=== PATIENT | female | born 2000 | race Caucasian/White ===

== ENCOUNTER 2019-07-11 19:55 | Inpatient (IN) | payer MEDICAID ==
--- NOTE | 2019-07-11 22:23 | PCM.LDHP ---
L&D History of Present Illness - General Date of Service: 07/11/19 Admit Problem/Dx: Patient Status Order with Admit Dx/Problem 07/11/19 20:12 Patient Status [ADT] Routine Admission Diagnosis/Problem Admission Diagnosis/Problem Pyelonephritis affecting Source of Information: Patient History Limitations: Reports: No Limitations - History of Present Illness Introduction:: Makayla Ledbetter is a 19 year old at 22 weeks 3 days by early ultrasound who presents for evaluation in the setting of ongoing back pain. Patient had called in to the office yesterday complaining of lower abdominal cramping and back pain that was not getting better with Tylenol. She was given a prescription for cyclobenzaprine as her symptoms sounded similar to a musculoskeletal problem as the pain would get worse on the area that was being stretched. She states that the medication did not help and the pain has gotten slowly worse throughout the day and into today. She states that now the pain is mostly in her back on the right side and in the lower right quadrant of her abdomen. She also has been having some suprapubic tenderness. She reports that she has been having worsening nausea since yesterday and significant amount of vomiting today and has not been able to keep anything down today. She has tried eating 2 or 3 times throughout the day and threw up every time that she tried to eat anything. She reports that she has been having fevers this afternoon. She denies any urinary symptoms such as dysuria, urinary frequency or urgency. She reports that she has been having some watery vaginal discharge for the last 2 days as well. Denies any vaginal bleeding. Patient was seen in the clinic on 07/09/2019 and doing well at that time. She reports that she has been having decreased movement yesterday and today as well. Timing/Duration: Reports: day(s): (2), getting worse Location, : Reports: Lower back, Flank Quality: Reports: Sharp, Throbbing Severity: Severe Associated Symptoms: Reports: vaginal fluid. Denies: vaginal bleeding, vaginal discharge Present Illness Comments:: Makayla Ledbetter is a 19 year old at 22 weeks 3 days by early ultrasound who presents with back pain and fevers. She has recently transferred care to myself starting on 07/09/2019. Prior to that appointment she had been having care in [place]. She received the influenza vaccine on 03/29/2019. This is complicated by: * Gastroesophageal reflux in and was recently started on Zantac to treat her reflux * Klebsiella pneumoniae urinary tract infection treated on 06/17/2019 with Keflex * Rubella nonimmune status, recommend MMR vaccine after delivery labs Blood type: O+ Antibody screen: Negative First trimester hematocrit/hemoglobin: 41.3%/14.0 on 04/01/2019 Platelets: 214 on 04/01/2019 Urine culture: Initial was negative, Klebsiella pneumoniae urinary tract infection on urine culture on 06/14/2019 Rubella status: Nonimmune Hepatitis B surface antigen: Negative RPR: Negative HIV: Negative Gonorrhea: Negative Chlamydia: Negative genetic testing: Normal AFP Tetra testing anatomy ultrasound : Grossly normal anatomy ultrasound but kidneys and spine were not well seen. Anterior placenta. No previa. 30th percentile. Normal heart rate and fluid. - Related Data Allergies/Adverse Reactions: Allergies Allergy/AdvReac Type Severity Reaction Status Date / Time oxycodone Allergy Other Verified 07/11/19 20:12 Home Medications: Home Meds No122/Iron/Folic Acid [ Multi Tablet] 1 each PO DAILY 04/15/19 [History] Cyclobenzaprine [Flexeril] 1 tab PO TID PRN 07/11/19 [History] Ranitidine HCl [Acid [employer]] 150 mg PO DAILY 07/11/19 [History] Past Medical History HEENT History: Reports: None Cardiovascular History: Reports: None Respiratory History: Reports: None Gastrointestinal History: Reports: None Genitourinary History: Reports: None 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: : 1 Para: 0 Musculoskeletal History: Reports: None Neurological History: Reports: None Psychiatric History: Reports: Anxiety, Depression Endocrine/Metabolic History: Reports: None 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 Hematologic History: Reports: None Immunologic History: Reports: None Oncologic (Cancer) History: Reports: None Dermatologic History: Reports: None - Infectious Disease History Infectious Disease History: Reports: None - Past Surgical History Head Surgeries/Procedures: Reports: None Female Surgical History: Reports: None Social & Family History - Family History Family Medical History: Noncontributory - Tobacco Use Smoking Status *Q: Never Smoker - Tobacco Core Measures Tobacco Use/Smoking Within Last 30 Days: No Smokeless Tobacco Use in Last 30 Days: No - Caffeine Use Caffeine Use: Reports: Soda - Alcohol Use Alcohol Use History: No - Recreational Drug Use Recreational Drug Use: No Drug Use in Last 12 Months: No - Living Situation & Occupation Living situation: Reports: Single, with Significant Other Occupation: Unemployed H&P Review of Systems - Review of Systems: Review Of Systems: See Below General: Reports: Fever, Malaise, Weakness. Denies: Chills HEENT: Reports: Sore Throat. Denies: Post Nasal Drip, Sinus Congestion Pulmonary: Denies: Shortness of Breath, Wheezing, Pleuritic Chest Pain, Cough Cardiovascular: Denies: Chest Pain, Palpitations, Dyspnea on Exertion Gastrointestinal: Reports: Nausea, Vomiting. Denies: Abdominal Pain, Constipation, Diarrhea Genitourinary: Reports: Flank Pain. Denies: Dysuria, Frequency, Burning, Pain, Urgency Musculoskeletal: Reports: Back Pain Skin: Denies: Rash, Lesions Psychiatric: Denies: Depression, Anxiety L&D Exam - Exam Exam: See Below - Vital Signs Vital Signs: Last Vital Signs Temp 38.5 C H 07/11/19 20:12 Pulse 105 H 07/11/19 20:12 Resp 16 07/11/19 20:12 BP 103/72 07/11/19 20:12 Pulse Ox 99 07/11/19 20:12 Weight: 86.636 kg - OB Specific Contraction Duration (sec): 0 Contraction Frequency (min): 0 Contraction Intensity: Quiet Movement: Active Heart Tones: Present Heart Tones per Min: 146 - Exam General: Alert, Oriented, Mild Distress HEENT: Conjunctiva Clear, EOMI Neck: Supple, Trachea Midline Lungs: Clear to Auscultation, Normal Respiratory Effort Cardiovascular: Regular Rhythm, Tachycardia (mild) GI/Abdominal Exam: Normal Bowel Sounds, Soft, No Distention, Tender (mild suprapubic tenderness) Back Exam: CVA Tenderness (R). No: CVA Tenderness (L) Extremities: Normal Inspection, No Pedal Edema Skin: Warm, Dry, Intact Psychiatric: Alert, Normal Affect, Normal Mood - Patient Data Lab Results Last 24 hrs: Laboratory Results - last 24 hr 07/11/19 07/11/19 Range/Units 20:20 20:20 Urine Color Yellow (Yellow) Urine Appearance Slt cloudy H (Clear) Urine pH 7.5 (5.0-8.0) Ur Specific [place] 1.020 (1.005-1.030) Urine Protein Trace H (Negative) Urine Glucose (UA) Negative (Negative) Urine Ketones Trace H (Negative) Urine Occult Blood Negative (Negative) Urine Nitrite Negative (Negative) Urine Bilirubin Negative (Negative) Urine Urobilinogen 0.2 (0.2-1.0) Ur Leukocyte Esterase 3+ H (Negative) Urine RBC 5-10 H (0-5) /hpf Urine WBC 40-50 H (0-5) /hpf Ur Squamous Epith Cells 20-30 H (0-5) /hpf Urine Bacteria Many H (FEW) /hpf Urine Mucus Few (FEW) /hpf Membrane Rupture Negative - Problem List (1) 22 weeks gestation of SNOMED Code(s): 07846074 ICD Code: Z3A.22 - 22 WEEKS GESTATION OF Status: Acute Current Visit: Yes (2) Pyelonephritis affecting in second trimester SNOMED Code(s): 67338799, 08354959, 186022689, 316435736 ICD Code: O23.02 - INFECTIONS OF KIDNEY IN , SECOND TRIMESTER Status: Acute Current Visit: Yes (3) Gastroesophageal reflux in SNOMED Code(s): 40396710826296989 ICD Code: O99.619 - DISEASES OF THE DGSTV SYS COMP , UNSP TRIMESTER ; K21.9 - GASTRO-ESOPHAGEAL REFLUX DISEASE WITHOUT ESOPHAGITIS Status: Acute Current Visit: Yes Problem List Initiated/Reviewed/Updated: Yes Orders Last 24hrs: Active Orders 24 hr Category Date Time Status Patient Status Manage Transfer [TRANSFER] Routine ADT 07/11/19 22:13 Active Patient Status [ADT] Routine ADT 07/11/19 20:12 Active Vital Signs [RC] PER UNIT ROUTINE Care 07/11/19 20:12 Active CBC WITH AUTO DIFF [HEME] Routine Lab 07/11/19 22:22 Ordered CMP [COMPREHENSIVE METABOLIC PN,CMP] [CHEM] Routine Lab 07/11/19 22:22 Ordered Resuscitation Status Routine Resus Stat 07/11/19 20:12 Ordered Assessment/Plan Comment:: Patient with suspected pyelonephritis based on CVA tenderness, fever, nausea and vomiting and abnormalities on her urinalysis with 3+ leukocyte esterase, 5- 10 urine RBCs, 40-50 urine WBCs and many bacteria. She was mildly dehydrated with specific gravity of 1.020. Refer patient to observation due to pyelonephritis with intolerance of oral intake Vitals per unit routine Activity as tolerated heart tones once per shift Regular diet as tolerated Normal saline IV fluid bolus 500 mL then transition to normal saline at 125 mL/ h. Continue while patient is not tolerating regular diet or fluids orally. Rocephin 2 g IV every 24 hours for treatment of pyelonephritis Tylenol 650 mg every 6 hours as needed for pain and also for treatment of fever Zofran 4 mg IV as first-line treatment and Phenergan 12.5 mg IV every 6 hours as second line treatment as needed for nausea and vomiting vitamin once daily Anticipate discharge once patient symptoms have improved, tolerating oral intake and afebrile Mayco Flowers MD 10:54 PM 07/11/2019
[2019-07-11] MEDS ORDERED: Sodium Chloride 0.9% 10 ML Syringe FLUSH PRN (22:33)
[2019-07-11] MEDS ORDERED: Famotidine 20 MG/2 ML SDV IV PRN (22:33)
[2019-07-11] MEDS ORDERED: Sodium Chloride 0.9% 1,000 ML IV SCH (22:33)
[2019-07-11] MEDS ORDERED: Promethazine 12.5 MG in Sodium Chloride 0.9% 50 ML IV PRN (22:33)
[2019-07-11] MEDS: cefTRIAXone 2 GM in Sodium Chloride 0.9% 100 ML IV SCH (22:58)
[2019-07-11] MEDS: Acetaminophen 325 MG Tab PO PRN (22:58)
[2019-07-12] MEDS: Sodium Chloride 0.9% 1,000 ML IV SCH ×3 (03:30→19:14)
[2019-07-12] MEDS: Ondansetron 4 MG/2 ML SDV IV PRN (05:47)
[2019-07-12] MEDS: Acetaminophen 325 MG Tab PO PRN ×3 (07:14→22:57)
[2019-07-12] MEDS ORDERED: Potassium Chloride 20 MEQ Tab.ER PO ONE (08:19)
[2019-07-12] MEDS ORDERED: Prenatal Multivitamin with Calcium/Folic Acid/Iron Tab PO SCH (09:00)
--- NOTE | 2019-07-12 09:16 | PCM.SN ---
- Free Text/Narrative Note: Antepartum Progress Note Subjective: Hospital day #2 Makayla Ledbetter is a 19-year-old female at 22 weeks 4 days (AMOR 11/11/2019) with pyelonephritis Patient reports that she is feeling better this morning. She denies any fevers overnight. She has continued to have some mild back pain as well as right lower quadrant abdominal pain. She reports that this pain is improving at this time. Reports that overnight she did have an episode of emesis after she had a sudden wave of nausea. She was given Zofran IV and she has not had any additional nausea since then. She reports that she is feeling small appetite this morning. She denies any cramping or contractions. Reports that she is feeling more movements throughout the evening. Objective: Vitals Vital Signs - 24 hr 07/11/19 07/11/19 07/11/19 20:12 20:35 23:45 Temperature 38.5 C H 37.7 C Temperature [ 38.5 C H Temporal] Pulse, 97 106 H Peripheral Pulse, 105 H Peripheral [ Pulse Oximetry] Respiratory 16 16 16 Rate Blood Pressure 103/72 115/46 L Blood Pressure 103/72 [Upper Arm] O2 Sat by Pulse 99 100 95 Oximetry 07/12/19 07/12/19 03:28 08:37 Temperature 36.6 C 37.2 C Temperature [ Temporal] Pulse, 93 92 Peripheral Pulse, Peripheral [ Pulse Oximetry] Respiratory 14 14 Rate Blood Pressure 109/49 L 109/48 L Blood Pressure [Upper Arm] O2 Sat by Pulse 99 99 Oximetry Physical exam: General Appearance: No distress, alert and oriented Respiratory: Clear to auscultation bilaterally Cardiovascular: Regular rate and rhythm Gastrointestinal: Soft, nontender, nondistended, gravid Back: Mild right-sided CVA tenderness, improved from last evening. No left CVA tenderness. Extremities: No edema noted in lower extremities bilaterally FHTs: 136 bpm Labs Laboratory Results - last 24 hr 07/11/19 07/11/19 07/11/19 Range/Units 20:20 20:20 22:40 WBC 14.94 H (3.98-10.04) K/mm3 RBC 3.47 L (3.98-5.22) M/mm3 Hgb 11.3 (11.2-15.7) gm/dl Hct 32.8 L (34.1-44.9) % MCV 94.5 (79.4-94.8) fl MCH 32.6 H (25.6-32.2) pg MCHC 34.5 (32.2-35.5) g/dl RDW Std Deviation 43.2 (36.4-46.3) fL Plt Count 214 (182-369) K/mm3 MPV 9.8 (9.4-12.3) fl Neut % (Auto) 83.8 H (34.0-71.1) % Lymph % (Auto) 6.2 L (19.3-51.7) % [place] % (Auto) 9.6 (4.7-12.5) % Eos % (Auto) 0 L (0.7-5.8) Baso % (Auto) 0.1 (0.1-1.2) % Neut # (Auto) 12.51 H (1.56-6.13) K/mm3 Lymph # (Auto) 0.93 L (1.18-3.74) K/mm3 [place] # (Auto) 1.44 H (0.24-0.36) K/mm3 Eos # (Auto) 0.00 L (0.04-0.36) K/mm3 Baso # (Auto) 0.01 (0.01-0.08) K/mm3 Manual Slide Review Abnormal smear Sodium (136-145) mEq/L Potassium (3.5-5.1) mEq/L Chloride (98-107) mEq/L Carbon Dioxide (21-32) mEq/L Anion Gap (5-15) BUN (7-18) mg/dL Creatinine (0.55-1.02) mg/dL Est Cr Clr Drug Dosing mL/min Estimated GFR (MDRD) (>60) mL/min BUN/Creatinine Ratio (14-18) Glucose (74-106) mg/dL Calcium (8.5-10.1) mg/dL Total Bilirubin (0.2-1.0) mg/dL AST (15-37) U/L ALT (14-59) U/L Alkaline Phosphatase (46-116) U/L Total Protein (6.4-8.2) g/dl Albumin (3.4-5.0) g/dl Globulin gm/dL Albumin/Globulin Ratio (1-2) Urine Color Yellow (Yellow) Urine Appearance Slt cloudy H (Clear) Urine pH 7.5 (5.0-8.0) Ur Specific [place] 1.020 (1.005-1.030) Urine Protein Trace H (Negative) Urine Glucose (UA) Negative (Negative) Urine Ketones Trace H (Negative) Urine Occult Blood Negative (Negative) Urine Nitrite Negative (Negative) Urine Bilirubin Negative (Negative) Urine Urobilinogen 0.2 (0.2-1.0) Ur Leukocyte Esterase 3+ H (Negative) Urine RBC 5-10 H (0-5) /hpf Urine WBC 40-50 H (0-5) /hpf Ur Squamous Epith Cells 20-30 H (0-5) /hpf Urine Bacteria Many H (FEW) /hpf Urine Mucus Few (FEW) /hpf Membrane Rupture Negative 07/11/19 Range/Units 22:40 WBC (3.98-10.04) K/mm3 RBC (3.98-5.22) M/mm3 Hgb (11.2-15.7) gm/dl Hct (34.1-44.9) % MCV (79.4-94.8) fl MCH (25.6-32.2) pg MCHC (32.2-35.5) g/dl RDW Std Deviation (36.4-46.3) fL Plt Count (182-369) K/mm3 MPV (9.4-12.3) fl Neut % (Auto) (34.0-71.1) % Lymph % (Auto) (19.3-51.7) % [place] % (Auto) (4.7-12.5) % Eos % (Auto) (0.7-5.8) Baso % (Auto) (0.1-1.2) % Neut # (Auto) (1.56-6.13) K/mm3 Lymph # (Auto) (1.18-3.74) K/mm3 [place] # (Auto) (0.24-0.36) K/mm3 Eos # (Auto) (0.04-0.36) K/mm3 Baso # (Auto) (0.01-0.08) K/mm3 Manual Slide Review Sodium 135 L (136-145) mEq/L Potassium 3.2 L (3.5-5.1) mEq/L Chloride 101 (98-107) mEq/L Carbon Dioxide 20 L (21-32) mEq/L Anion Gap 17.2 H (5-15) BUN 7 (7-18) mg/dL Creatinine 0.7 (0.55-1.02) mg/dL Est Cr Clr Drug Dosing 132.86 mL/min Estimated GFR (MDRD) > 60 (>60) mL/min BUN/Creatinine Ratio 10.0 L (14-18) Glucose 99 (74-106) mg/dL Calcium 9.0 (8.5-10.1) mg/dL Total Bilirubin 0.8 (0.2-1.0) mg/dL AST 16 (15-37) U/L ALT 18 (14-59) U/L Alkaline Phosphatase 95 (46-116) U/L Total Protein 7.3 (6.4-8.2) g/dl Albumin 3.0 L (3.4-5.0) g/dl Globulin 4.3 gm/dL Albumin/Globulin Ratio 0.7 L (1-2) Urine Color (Yellow) Urine Appearance (Clear) Urine pH (5.0-8.0) Ur Specific [place] (1.005-1.030) Urine Protein (Negative) Urine Glucose (UA) (Negative) Urine Ketones (Negative) Urine Occult Blood (Negative) Urine Nitrite (Negative) Urine Bilirubin (Negative) Urine Urobilinogen (0.2-1.0) Ur Leukocyte Esterase (Negative) Urine RBC (0-5) /hpf Urine WBC (0-5) /hpf Ur Squamous Epith Cells (0-5) /hpf Urine Bacteria (FEW) /hpf Urine Mucus (FEW) /hpf Membrane Rupture Assessment: Makayla Ledbetter is a 19-year-old female at 22 weeks 4 days with pyelonephritis Patient with O+ blood type Plan: * Continue management with IV Rocephin 2 g until patient has shown improvement. We will plan to discharge patient once she is able to tolerate regular diet and has been afebrile for approximately 24 hours. * Patient with mild hypokalemia on her CMP. Suspect that this is due to poor oral intake as well as nausea and vomiting throughout the day yesterday. We will give patient KCl 20 mEq p.o. x1 today. We will monitor as needed if she does not have good oral intake throughout the day today. * Patient feeling more movement and normal heart tones with Doppler bedside assessment. * Patient may be able to be discharged this evening if she continues to be afebrile, she is tolerating oral intake and she feels well enough to be able to go home. Mayco Flowers M.D. 9:12 AM 07/12/2019
[2019-07-12] MEDS ORDERED: Acetaminophen/HYDROcodone 325-10 MG Tab PO PRN (15:34)
[2019-07-12] MEDS ORDERED: Acetaminophen/HYDROcodone 325-5 MG Tab PO PRN (16:37)
--- NOTE | 2019-07-12 16:46 | PCM.SN ---
- Free Text/Narrative Note: Antepartum Progress Note Subjective: Hospital day #2 Makayla Ledbetter is a 19-year-old female at 22 weeks 4 days (AMOR 11/11/2019) with pyelonephritis Patient reports that she is feeling about the same as she was this morning. Denies any significant improvement since this morning. She denies any fevers of the day today. She has continued to have some mild back pain as well as right lower quadrant abdominal pain. Reports that she is now having some mild left-sided lower back pain as well. Reports that she is having some continued nausea with eating and has had several small meals today. She denies any vomiting throughout the day today. She reports that she is not having a significant sore throat this afternoon but is having a dry cough. She denies any cramping or contractions. Reports that she is feeling more movements throughout the evening. Objective: Vitals Vital Signs - 8 hr 07/12/19 07/12/19 13:15 15:00 Temperature 37.9 C Temperature [ 37.7 C Temporal] Pulse, 94 Peripheral Respiratory 14 Rate Blood Pressure 117/59 L O2 Sat by Pulse 100 Oximetry Physical exam: General Appearance: No distress, alert and oriented Respiratory: Clear to auscultation bilaterally Cardiovascular: Regular rate and rhythm Gastrointestinal: Soft, nontender, nondistended, gravid Back: Mild right-sided CVA tenderness, stable from this morning. No left CVA tenderness. Extremities: No edema noted in lower extremities bilaterally FHTs: 136 bpm Labs Laboratory Results - last 24 hr 07/11/19 07/11/19 07/11/19 Range/Units 20:20 20:20 22:40 WBC 14.94 H (3.98-10.04) K/mm3 RBC 3.47 L (3.98-5.22) M/mm3 Hgb 11.3 (11.2-15.7) gm/dl Hct 32.8 L (34.1-44.9) % MCV 94.5 (79.4-94.8) fl MCH 32.6 H (25.6-32.2) pg MCHC 34.5 (32.2-35.5) g/dl RDW Std Deviation 43.2 (36.4-46.3) fL Plt Count 214 (182-369) K/mm3 MPV 9.8 (9.4-12.3) fl Neut % (Auto) 83.8 H (34.0-71.1) % Lymph % (Auto) 6.2 L (19.3-51.7) % [place] % (Auto) 9.6 (4.7-12.5) % Eos % (Auto) 0 L (0.7-5.8) Baso % (Auto) 0.1 (0.1-1.2) % Neut # (Auto) 12.51 H (1.56-6.13) K/mm3 Lymph # (Auto) 0.93 L (1.18-3.74) K/mm3 [place] # (Auto) 1.44 H (0.24-0.36) K/mm3 Eos # (Auto) 0.00 L (0.04-0.36) K/mm3 Baso # (Auto) 0.01 (0.01-0.08) K/mm3 Manual Slide Review Abnormal smear Sodium (136-145) mEq/L Potassium (3.5-5.1) mEq/L Chloride (98-107) mEq/L Carbon Dioxide (21-32) mEq/L Anion Gap (5-15) BUN (7-18) mg/dL Creatinine (0.55-1.02) mg/dL Est Cr Clr Drug Dosing mL/min Estimated GFR (MDRD) (>60) mL/min BUN/Creatinine Ratio (14-18) Glucose (74-106) mg/dL Calcium (8.5-10.1) mg/dL Total Bilirubin (0.2-1.0) mg/dL AST (15-37) U/L ALT (14-59) U/L Alkaline Phosphatase (46-116) U/L Total Protein (6.4-8.2) g/dl Albumin (3.4-5.0) g/dl Globulin gm/dL Albumin/Globulin Ratio (1-2) Urine Color Yellow (Yellow) Urine Appearance Slt cloudy H (Clear) Urine pH 7.5 (5.0-8.0) Ur Specific [place] 1.020 (1.005-1.030) Urine Protein Trace H (Negative) Urine Glucose (UA) Negative (Negative) Urine Ketones Trace H (Negative) Urine Occult Blood Negative (Negative) Urine Nitrite Negative (Negative) Urine Bilirubin Negative (Negative) Urine Urobilinogen 0.2 (0.2-1.0) Ur Leukocyte Esterase 3+ H (Negative) Urine RBC 5-10 H (0-5) /hpf Urine WBC 40-50 H (0-5) /hpf Ur Squamous Epith Cells 20-30 H (0-5) /hpf Urine Bacteria Many H (FEW) /hpf Urine Mucus Few (FEW) /hpf Membrane Rupture Negative 07/11/19 Range/Units 22:40 WBC (3.98-10.04) K/mm3 RBC (3.98-5.22) M/mm3 Hgb (11.2-15.7) gm/dl Hct (34.1-44.9) % MCV (79.4-94.8) fl MCH (25.6-32.2) pg MCHC (32.2-35.5) g/dl RDW Std Deviation (36.4-46.3) fL Plt Count (182-369) K/mm3 MPV (9.4-12.3) fl Neut % (Auto) (34.0-71.1) % Lymph % (Auto) (19.3-51.7) % [place] % (Auto) (4.7-12.5) % Eos % (Auto) (0.7-5.8) Baso % (Auto) (0.1-1.2) % Neut # (Auto) (1.56-6.13) K/mm3 Lymph # (Auto) (1.18-3.74) K/mm3 [place] # (Auto) (0.24-0.36) K/mm3 Eos # (Auto) (0.04-0.36) K/mm3 Baso # (Auto) (0.01-0.08) K/mm3 Manual Slide Review Sodium 135 L (136-145) mEq/L Potassium 3.2 L (3.5-5.1) mEq/L Chloride 101 (98-107) mEq/L Carbon Dioxide 20 L (21-32) mEq/L Anion Gap 17.2 H (5-15) BUN 7 (7-18) mg/dL Creatinine 0.7 (0.55-1.02) mg/dL Est Cr Clr Drug Dosing 132.86 mL/min Estimated GFR (MDRD) > 60 (>60) mL/min BUN/Creatinine Ratio 10.0 L (14-18) Glucose 99 (74-106) mg/dL Calcium 9.0 (8.5-10.1) mg/dL Total Bilirubin 0.8 (0.2-1.0) mg/dL AST 16 (15-37) U/L ALT 18 (14-59) U/L Alkaline Phosphatase 95 (46-116) U/L Total Protein 7.3 (6.4-8.2) g/dl Albumin 3.0 L (3.4-5.0) g/dl Globulin 4.3 gm/dL Albumin/Globulin Ratio 0.7 L (1-2) Urine Color (Yellow) Urine Appearance (Clear) Urine pH (5.0-8.0) Ur Specific [place] (1.005-1.030) Urine Protein (Negative) Urine Glucose (UA) (Negative) Urine Ketones (Negative) Urine Occult Blood (Negative) Urine Nitrite (Negative) Urine Bilirubin (Negative) Urine Urobilinogen (0.2-1.0) Ur Leukocyte Esterase (Negative) Urine RBC (0-5) /hpf Urine WBC (0-5) /hpf Ur Squamous Epith Cells (0-5) /hpf Urine Bacteria (FEW) /hpf Urine Mucus (FEW) /hpf Membrane Rupture Assessment: Makayla Ledbetter is a 19-year-old female at 22 weeks 4 days with pyelonephritis Patient with O+ blood type Plan: * Admit to inpatient status with continued symptoms and needing treatment for greater than 24 hours. * Continue management with IV Rocephin 2 g until patient has shown improvement. We will plan to discharge patient once she is able to tolerate regular diet and has been afebrile for approximately 24 hours. * Patient continues to feel good movement and normal heart tones with Doppler bedside assessment. * Will check flu swab as well as strep throat swab to ensure that there is not a co-infection with her pyelonephritis * Patient may be able to be discharged when she is afebrile for 24 hours, she is tolerating oral intake and she feels well enough to be able to go home. Mayco Flowers M.D. 4:43 PM 07/12/2019
[2019-07-12] MEDS: cefTRIAXone 2 GM in Sodium Chloride 0.9% 100 ML IV SCH (22:58)
[2019-07-12] MEDS ORDERED: HYDROmorphone 2 MG Tab PO PRN (23:59)
[2019-07-13] MEDS: Ondansetron 4 MG/2 ML SDV IV PRN ×2 (00:26→05:59)
[2019-07-13] MEDS: Acetaminophen 325 MG Tab PO PRN ×3 (05:42→19:28)
[2019-07-13] MEDS ORDERED: Ondansetron 4 MG Tab.DIS PO PRN (08:26)
--- NOTE | 2019-07-13 08:26 | PCM.PN ---
- General Info Date of Service: 07/13/19 Functional Status: Reports: Tolerating Diet, Ambulating - Review of Systems General: Reports: No Symptoms Pulmonary: Reports: No Symptoms Cardiovascular: Reports: No Symptoms Gastrointestinal: Reports: No Symptoms Genitourinary: Reports: No Symptoms Musculoskeletal: Reports: Back Pain (right sided, improving from previous ) - Patient Data Vitals - Most Recent: Last Vital Signs Temp 36.7 C 07/13/19 07:37 Pulse 106 H 07/13/19 05:43 Resp 14 07/13/19 05:43 BP 105/55 L 07/13/19 05:45 Pulse Ox 99 07/13/19 05:43 Weight - Most Recent: 86.636 kg I&O - Last 24 Hours: Intake & Output 07/12/19 07/13/19 07/13/19 22:59 06:59 14:59 Intake Total 210 1100 Balance 210 1100 Lab Results Last 24 Hours: Laboratory Results - last 24 hr 07/11/19 Range/Units 20:20 Urine Opiates Screen Negative (TOCLZF=406) Ur Buprenorphine Scrn Negative (CUTOFF=10) Ur Oxycodone Screen Negative (AHI5PL=486) Urine Methadone Screen Negative (TUUIND=349) Ur Propoxyphene Screen Negative (NAGDQE=027) Ur Barbiturates Screen Negative (IBIHSY=151) Ur Tricyclics Screen Presumptive positive H (XDACAQ=519) Ur Phencyclidine Scrn Negative (CUTOFF=25) Ur Amphetamine Screen Negative (CRJHRF=712) U Methamphetamines Scrn Negative (ECRZXC=248) U Benzodiazepines Scrn Negative (FILMIA=280) U Cocaine Metab Screen Negative (WISCXR=535) U Marijuana (THC) Screen Negative (CUTOFF=50) Yuriy Results Last 24 Hours: Microbiology 07/12/19 16:38 Group A Streptococcus Rapid Screen - Final Throat NEGATIVE STREP A SCREEN REFERENCE RANGE: NEGATIVE 07/12/19 16:38 Influenza Type A Antigen Screen - Final Nasopharyngeal Swab NEGATIVE INFLUENZA A VIRUS AG REFERENCE RANGE: NEGATIVE Influenza Type B Antigen Screen - Final NEGATIVE INFLUENZA B VIRUS AG REFERENCE RANGE: NEGATIVE 07/11/19 20:20 Urine Culture - Preliminary Urine, Clean Catch Gram Negative Rods Med Orders - Current: Current Medications Acetaminophen (Tylenol) 650 mg PO Q6H PRN PRN Reason: mild pain and fever Last Admin: 07/13/19 05:42 Dose: 650 mg Hydromorphone HCl (Dilaudid) 2 mg PO Q4H PRN PRN Reason: Pain (severe 7-10) Last Admin: 07/13/19 00:11 Dose: 2 mg Ceftriaxone Sodium 2 gm/ (Sodium Chloride) 100 mls @ 200 mls/hr IV Q24H [facility] Last Admin: 07/12/19 22:58 Dose: 200 mls/hr Sodium Chloride (Saline Flush) 10 ml FLUSH ASDIRECTED PRN PRN Reason: Keep Vein Open Discontinued Medications Hydrocodone Bitart/Acetaminophen ([place] 325-10 Mg) 1 tab PO Q6H PRN PRN Reason: Pain (moderate 4-6) Last Admin: 07/12/19 17:33 Dose: 1 tab Hydrocodone Bitart/Acetaminophen ([place] 325-5 Mg) 2 tab PO Q6H PRN PRN Reason: Pain (severe 7-10) Famotidine (Pepcid) 20 mg IV Q12H PRN PRN Reason: Heartburn Promethazine HCl 12.5 mg/ (Sodium Chloride) 50.5 mls @ 100 mls/hr IV Q6H PRN PRN Reason: Nausea/Vomiting Sodium Chloride (Normal Saline) 1,000 mls @ 500 mls/hr IV .BOLUS [facility] Last Admin: 07/11/19 22:45 Dose: 500 mls/hr Sodium Chloride (Normal Saline) 1,000 mls @ 125 mls/hr IV ASDIRECTED [facility] Last Admin: 07/12/19 19:14 Dose: 125 mls/hr Ondansetron HCl (Zofran) 4 mg IV Q4H PRN PRN Reason: Nausea/Vomiting Last Admin: 07/13/19 05:59 Dose: 4 mg Potassium Chloride (Klor-Con M20) 20 meq PO ONETIME ONE Stop: 07/12/19 08:20 Last Admin: 07/12/19 09:42 Dose: 20 meq Prenat Multivit/[place]/Iron/Folic Ac ( Plus Iron) 1 each PO DAILY [facility] Last Admin: 07/12/19 09:42 Dose: 1 each - Exam General: Alert, Oriented, Cooperative, No Acute Distress Lungs: Clear to Auscultation, Normal Respiratory Effort Cardiovascular: Regular Rate, Regular Rhythm GI/Abdominal Exam: Soft, Non-Tender Back Exam: Normal Inspection, CVA Tenderness (R) (minimal). No: CVA Tenderness (L), Vertebral Tenderness Extremities: Normal Inspection Sepsis Event Note - Evaluation Sepsis Screening Result: No Definite Risk - Focused Exam Vital Signs: Vital Signs Temp Temp Pulse Pulse Resp BP Pulse Ox 07/13/19 07:37 36.7 C 07/13/19 05:45 105/55 L 07/13/19 05:43 37.9 C 106 H 14 99 07/13/19 05:42 37.9 C 07/13/19 00:00 37.5 C 88 14 112/50 L 98 Date Exam was Performed: 07/13/19 Time Exam was Performed: 08:19 - Problem List & Annotations (1) 22 weeks gestation of SNOMED Code(s): 40548889 Code(s): Z3A.22 - 22 WEEKS GESTATION OF Status: Acute Current Visit: Yes (2) Pyelonephritis affecting in second trimester SNOMED Code(s): 71493905, 96866433, 020942246, 012735032 Code(s): O23.02 - INFECTIONS OF KIDNEY IN , SECOND TRIMESTER Status: Acute Current Visit: Yes - Problem List Review Problem List Initiated/Reviewed/Updated: Yes - My Orders Last 24 Hours: My Active Orders 07/12/19 23:59 HYDROmorphone [Dilaudid] 2 mg PO Q4H PRN - Assessment Assessment:: HD#3 - admitted for Pyelonephritis in . Currently 22 5/7 wks gestation - Plan Plan:: Pyelonephritis * S/p 2 doses of IV ceftriaxone. Last fever was on admission, 07/10 at 2015 of 38.5. Did, however, have a temperature of 37.9 this AM. Not technically fever , but given this finding preference would be for patient to receive 1 last additional dose of IV antibiotic. Has had this set for 2300. Will move up time slightly to 2100 and then plan on discharge home after completion as lives in town. Will send Rx for Cephalexin on discharge. Hopefully culture sensitivities will be back today. Will contact lab. * Stopped IV fluids overnight. This AM patient ate all of bagel and half of her omelet. Will discontinue IV Zofran. Switch to oral anti-emetics and plan on Rx on discharge as well * Strongly encouraged use of Tylenol for pain. Did switch from Fisher to plan Tylenol overnight with then PRN oral Dilaudid. Reviewed very small Rx would be sent on discharge. * Follow up with Dr. Flowers on 07/18/19 * Continue assessing FHR per shift
--- NOTE | 2019-07-13 08:35 | PCM.DCSUM1 ---
Discharge Summary - Discharge Data Discharge Date: 07/13/19 Discharge Disposition: Home, Self-Care 01 Condition: Good - Referral to Home Health Primary Care Physician: Mayco Flowers MD - Discharge Diagnosis/Problem(s) (1) 22 weeks gestation of SNOMED Code(s): 08757889 ICD Code: Z3A.22 - 22 WEEKS GESTATION OF Status: Acute (2) Pyelonephritis affecting in second trimester SNOMED Code(s): 72403969, 15974711, 085328310, 940855773 ICD Code: O23.02 - INFECTIONS OF KIDNEY IN , SECOND TRIMESTER Status: Acute - Patient Summary/Data Complications: None Consults: None Recommended Follow-up Testing/Procedures: Follow up in 3-5 days for reassessment Hospital Course: 19 y/o at 22 3/7 wks who was admitted for fever, flank pain concerning for pyelonephritis. She was started on IV ceftraixone q 24 hours and received 3 doses. She was feeling improved, able to eat/drink, and with manageable pain and so was discharged to complete a 10 day course of Keflex . - Patient Instructions Diet: Regular Diet as Tolerated Activity: As Tolerated Driving: Do Not Drive (When taking pain medication ) Showering/Bathing: May Shower Showering/Bathing, Other: May bathe Notify Provider of: Fever, Increased Pain, Nausea and/or Vomiting - Discharge Plan *PRESCRIPTION DRUG MONITORING PROGRAM REVIEWED*: No *COPY OF PRESCRIPTION DRUG MONITORING REPORT IN PATIENT KATHY: No Prescriptions/Med Rec: Cephalexin [Keflex] 500 mg PO Q6H 10 Days #40 capsule HYDROmorphone [Dilaudid] 2 mg PO Q4H PRN #8 tablet PRN Reason: Pain (Severe 7-10) Ondansetron [Zofran Odt] 8 mg PO Q8H PRN #20 tab.rapdis PRN Reason: Nausea Home Medications: Home Meds No122/Iron/Folic Acid [ Multi Tablet] 1 each PO DAILY 04/15/19 [History] Cyclobenzaprine [Flexeril] 1 tab PO TID PRN 07/11/19 [History] Ranitidine HCl [Acid [employer] Facilities Specialist] 150 mg PO DAILY 07/11/19 [History] Acetaminophen [Tylenol] 650 mg PO Q6H PRN tablet 07/13/19 [Rx] Cephalexin [Keflex] 500 mg PO Q6H 10 Days #40 capsule 07/13/19 [Rx] HYDROmorphone [Dilaudid] 2 mg PO Q4H PRN #8 tablet 07/13/19 [Rx] Ondansetron [Zofran Odt] 8 mg PO Q8H PRN #20 tab.rapdis 07/13/19 [Rx] Referrals: Mayco Flowers MD [Primary Care Provider] - 07/18/19 - Discharge Summary/Plan Comment DC Time >30 min.: No - Patient Data Vitals - Most Recent: Last Vital Signs Temp 36.7 C 07/13/19 07:37 Pulse 106 H 07/13/19 05:43 Resp 14 07/13/19 05:43 BP 105/55 L 07/13/19 05:45 Pulse Ox 99 07/13/19 05:43 Weight - Most Recent: 86.636 kg I&O - Last 24 hours: Intake & Output 07/12/19 07/13/19 07/13/19 22:59 06:59 14:59 Intake Total 210 1100 Balance 210 1100 Lab Results - Last 24 hrs: Laboratory Results - last 24 hr 07/11/19 Range/Units 20:20 Urine Opiates Screen Negative (JUTWLK=465) Ur Buprenorphine Scrn Negative (CUTOFF=10) Ur Oxycodone Screen Negative (MMK1LL=721) Urine Methadone Screen Negative (VVZSJW=760) Ur Propoxyphene Screen Negative (PHFAUT=649) Ur Barbiturates Screen Negative (NFJCJO=556) Ur Tricyclics Screen Presumptive positive H (ZBJJDH=498) Ur Phencyclidine Scrn Negative (CUTOFF=25) Ur Amphetamine Screen Negative (NMQEIK=839) U Methamphetamines Scrn Negative (PBPHBP=537) U Benzodiazepines Scrn Negative (RLKENZ=637) U Cocaine Metab Screen Negative (POEIYO=547) U Marijuana (THC) Screen Negative (CUTOFF=50) JOSÉ MIGUEL Results - Last 24 hrs: Microbiology 07/11/19 20:20 Urine Culture - Final Urine, Clean Catch Klebsiella Pneumoniae 07/12/19 16:38 Group A Streptococcus Rapid Screen - Final Throat NEGATIVE STREP A SCREEN REFERENCE RANGE: NEGATIVE 07/12/19 16:38 Influenza Type A Antigen Screen - Final Nasopharyngeal Swab NEGATIVE INFLUENZA A VIRUS AG REFERENCE RANGE: NEGATIVE Influenza Type B Antigen Screen - Final NEGATIVE INFLUENZA B VIRUS AG REFERENCE RANGE: NEGATIVE Med Orders - Current: Current Medications Acetaminophen (Tylenol) 650 mg PO Q6H PRN PRN Reason: mild pain and fever Last Admin: 07/13/19 05:42 Dose: 650 mg Hydromorphone HCl (Dilaudid) 2 mg PO Q4H PRN PRN Reason: Pain (severe 7-10) Last Admin: 07/13/19 00:11 Dose: 2 mg Ceftriaxone Sodium 2 gm/ (Sodium Chloride) 100 mls @ 200 mls/hr IV Q24H [facility] Ondansetron HCl (Zofran Odt) 4 mg PO Q4H PRN PRN Reason: Nausea/Vomiting Sodium Chloride (Saline Flush) 10 ml FLUSH ASDIRECTED PRN PRN Reason: Keep Vein Open Discontinued Medications Hydrocodone Bitart/Acetaminophen ([place] 325-10 Mg) 1 tab PO Q6H PRN PRN Reason: Pain (moderate 4-6) Last Admin: 07/12/19 17:33 Dose: 1 tab Hydrocodone Bitart/Acetaminophen ([place] 325-5 Mg) 2 tab PO Q6H PRN PRN Reason: Pain (severe 7-10) Famotidine (Pepcid) 20 mg IV Q12H PRN PRN Reason: Heartburn Ceftriaxone Sodium 2 gm/ (Sodium Chloride) 100 mls @ 200 mls/hr IV Q24H [facility] Last Admin: 07/12/19 22:58 Dose: 200 mls/hr Promethazine HCl 12.5 mg/ (Sodium Chloride) 50.5 mls @ 100 mls/hr IV Q6H PRN PRN Reason: Nausea/Vomiting Sodium Chloride (Normal Saline) 1,000 mls @ 500 mls/hr IV .BOLUS [facility] Last Admin: 07/11/19 22:45 Dose: 500 mls/hr Sodium Chloride (Normal Saline) 1,000 mls @ 125 mls/hr IV ASDIRECTED [facility]AN[facility] Last Admin: 07/12/19 19:14 Dose: 125 mls/hr Ondansetron HCl (Zofran) 4 mg IV Q4H PRN PRN Reason: Nausea/Vomiting Last Admin: 07/13/19 05:59 Dose: 4 mg Potassium Chloride (Klor-Con M20) 20 meq PO ONETIME ONE Stop: 07/12/19 08:20 Last Admin: 07/12/19 09:42 Dose: 20 meq Prenat Multivit/[place]/Iron/Folic Ac ( Plus Iron) 1 each PO DAILY [facility] Last Admin: 07/12/19 09:42 Dose: 1 each
--- NOTE | 2019-07-13 20:11 | PCM.SN ---
- Free Text/Narrative Note: 2014 Called by RN that patient with temporal temperature of 38.0 and simultaneous oral of 36.7. Patient has done well throughout day. Last dose of Tylenol around noon. Has not required any narcotic pain medication since about midnight. Culture and sensitivities did return today showing urine culture with Klebsiella and sensitive to Ceftriaxone and Keflex. Question whether elevated temperature may be error given simultaneous normal oral temperature. Will given 3rd dose of IV ceftriaxone as planned and then discharge pt to complete 10 day course of Keflex. Needs to follow up with Dr. Flowers this week. Aware of symptoms which would require reassessment Juana Aquino MD
[2019-07-13] MEDS ORDERED: cefTRIAXone 2 GM in Sodium Chloride 0.9% 100 ML IV SCH (21:00)
== END 2019-07-13 21:00 | disposition home or self-care (01) | DRG 832 ==
LOC: JD.OBCHECK 19:55 → JD.OB 22:13 → OBSVTOIN 07-12 18:41
PROVIDERS: ADMIT Obstetrics & Gynecology; ATTEND Obstetrics & Gynecology
DX: O23.02 Infections of kidney in pregnancy, second trimester (principal); N12 Tubulo-interstitial nephritis, not specified as acute or chronic; K21.9 Gastro-esophageal reflux disease without esophagitis; O99.613 Diseases of the digestive system complicating pregnancy, third trimester; Z3A.22 22 weeks gestation of pregnancy; Z79.899 Other long term (current) drug therapy
CPT/HCPCS: 36415; 80053; 80306; 81001; 84112; 85025; 87081; 87086; 87088; 87186; 87430; 87804; A9270-GY; J0696; J2405; J7030; J7050

== ENCOUNTER 2019-10-28 09:19 | Inpatient (IN) | payer MEDICAID ==
[2019-10-28] MEDS ORDERED: Nalbuphine 10 MG/ML Syringe IVPUSH PRN (11:12)
[2019-10-28] MEDS ORDERED: Sodium Chloride 0.9% 10 ML Syringe FLUSH PRN (11:12)
[2019-10-28] MEDS ORDERED: Oxytocin/Lactated Ringers 10 UNIT/1,000 ML BAG IV SCH ×3 (11:12→21:35)
[2019-10-28] MEDS: Lactated Ringers 1,000 ML IV SCH ×3 (11:33→14:04)
[2019-10-28] MEDS ORDERED: diphenhydrAMINE 50 MG/ML SDV IVPUSH PRN (12:36)
[2019-10-28] MEDS ORDERED: ePHEDrine 50 MG/ML SDV IVPUSH PRN (12:36)
[2019-10-28] MEDS ORDERED: fentaNYL 100 MCG/2 ML SDV EPIDUR PRN (12:36)
[2019-10-28] MEDS: Bupivacaine/fentaNYL/NS 100 ML Bag EPIDUR PRN ×2 (12:48→19:08)
--- NOTE | 2019-10-28 13:14 | PCM.PREANE ---
Preanesthetic Assessment - Procedure Proposed Procedure: JOHN - Anesthesia/Transfusion/Family Hx Anesthesia History: Prior Anesthesia Without Reaction Family History of Anesthesia Reaction: No Transfusion History: No Prior Transfusion(s) - Review of Systems General: No Symptoms Pulmonary: No Symptoms Cardiovascular: No Symptoms Gastrointestinal: No Symptoms Neurological: No Symptoms Other: Reports: None - Physical Assessment Vital Signs: Last Vital Signs Temp 98.1 F 10/28/19 09:30 Pulse 99 10/28/19 09:30 Resp 18 10/28/19 09:30 BP 129/82 10/28/19 09:30 Pulse Ox 99 10/28/19 09:30 Height: 5 ft 9 in Weight: 98.021 kg ASA Class: 2 Mental Status: Alert & Oriented x3 Airway Class: Mallampati = 1 Dentition: Reports: Normal Dentition, Missing Tooth/Teeth (front right tooth ) Thyro-Mental Finger Breadths: 3 (ROOT CANALS) Mouth Opening Finger Breadths: 3 ROM/Head Extension: Full Lungs: Clear to Auscultation, Normal Respiratory Effort Cardiovascular: Regular Rate, Regular Rhythm - Lab Values: Laboratory Last Values WBC 9.28 K/mm3 (3.98-10.04) 10/28/19 11:25 RBC 4.30 M/mm3 (3.98-5.22) 10/28/19 11:25 Hgb 12.4 gm/dl (11.2-15.7) 10/28/19 11:25 Hct 37.3 % (34.1-44.9) 10/28/19 11:25 MCV 86.7 fl (79.4-94.8) 10/28/19 11:25 MCH 28.8 pg (25.6-32.2) 10/28/19 11:25 MCHC 33.2 g/dl (32.2-35.5) 10/28/19 11:25 RDW Std Deviation 43.8 fL (36.4-46.3) 10/28/19 11:25 Plt Count 220 K/mm3 (182-369) 10/28/19 11:25 MPV 11.2 fl (9.4-12.3) 10/28/19 11:25 Neut % (Auto) 73.4 % (34.0-71.1) H 10/28/19 11:25 Lymph % (Auto) 16.2 % (19.3-51.7) L 10/28/19 11:25 [place] % (Auto) 9.7 % (4.7-12.5) 10/28/19 11:25 Eos % (Auto) 0.3 (0.7-5.8) L 10/28/19 11:25 Baso % (Auto) 0.2 % (0.1-1.2) 10/28/19 11:25 Neut # (Auto) 6.81 K/mm3 (1.56-6.13) H 10/28/19 11:25 Lymph # (Auto) 1.50 K/mm3 (1.18-3.74) 10/28/19 11:25 [place] # (Auto) 0.90 K/mm3 (0.24-0.36) H 10/28/19 11:25 Eos # (Auto) 0.03 K/mm3 (0.04-0.36) L 10/28/19 11:25 Baso # (Auto) 0.02 K/mm3 (0.01-0.08) 10/28/19 11:25 COVID-19 (ZEE) Negative (NEGATIVE) 10/28/19 11:05 - Allergies Allergies/Adverse Reactions: Allergies Allergy/AdvReac Type Severity Reaction Status Date / Time oxycodone AdvReac Intermediate Nausea and Verified 10/28/19 11:11 Vomiting - Blood Blood Available: No - Acknowledgements Anesthesia Type Planned: Epidural Pt an Appropriate Candidate for the Planned Anesthesia: Yes Alternatives and Risks of Anesthesia Discussed w Pt/Guardian: Yes Pt/Guardian Understands and Agrees with Anesthesia Plan: Yes PreAnesthesia Questionnaire - Past Health History Medical/Surgical History: Denies Medical/Surgical History HEENT History: Reports: None Cardiovascular History: Reports: None Respiratory History: Reports: None Gastrointestinal History: Reports: None (preg), GERD Genitourinary History: Reports: None, Other (See Below) Other Genitourinary History: history of kidney infection 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 Para: 0 Musculoskeletal History: Reports: None Neurological History: Reports: None Psychiatric History: Reports: Anxiety, Depression Endocrine/Metabolic History: Reports: None Hematologic History: Reports: None Immunologic History: Reports: None Oncologic (Cancer) History: Reports: None Dermatologic History: Reports: None - Infectious Disease History Infectious Disease History: Reports: None - Past Surgical History Head Surgeries/Procedures: Reports: None HEENT Surgical History: Reports: None Female Surgical History: Reports: None, D&C - SUBSTANCE USE Smoking Status *Q: Never Smoker Tobacco Use Within Last Twelve Months: No Second Hand Smoke Exposure: No Days Per Week of Alcohol Use: 0 Recreational Drug Use History: No - HOME MEDS Home Medications: Home Meds No122/Iron/Folic Acid [ Multi Tablet] 1 each PO DAILY 04/15/19 [History] Cyclobenzaprine [Flexeril] 1 tab PO TID PRN 07/11/19 [History] Ranitidine HCl [Acid Signing Teacher] 150 mg PO DAILY 07/11/19 [History] Acetaminophen [Tylenol] 650 mg PO Q6H PRN tablet 07/13/19 [Rx] HYDROmorphone [Dilaudid] 2 mg PO Q4H PRN #8 tablet 07/13/19 [Rx] Ondansetron [Zofran Odt] 8 mg PO Q8H PRN #20 tab.rapdis 07/13/19 [Rx] cephALEXin [Keflex] 500 mg PO Q6H 10 Days #40 capsule 07/13/19 [Rx] - CURRENT (IN HOUSE) MEDS Current Meds: Current Medications Cephalexin (Keflex) 500 mg PO BEDTIME DEVANTE Diphenhydramine HCl (Benadryl) 25 mg IVPUSH Q6H PRN PRN Reason: pruritis Ephedrine Sulfate (Ephedrine Sulfate) 5 mg IVPUSH ASDIRECTED PRN PRN Reason: Hypotension Fentanyl (Sublimaze) 100 mcg EPIDUR Q3H PRN PRN Reason: Pain Last Admin: 10/28/19 12:48 Dose: 100 mcg Documented by: Fentanyl/Bupivacaine HCl (Fentanyl/Bupivacaine/Ns 2 Mcg-0.125% 100 Ml) 100 ml EPIDUR ASDIRECTED PRN PRN Reason: Pain Last Admin: 10/28/19 12:48 Dose: 100 ml Documented by: Lactated Ringer's (Ringers, Lactated) 1,000 mls @ 100 mls/hr IV ASDIRECTED DEVANTE Last Admin: 10/28/19 12:49 Dose: 100 mls/hr Documented by: Oxytocin/Lactated Ringer's (Pitocin In Lr 10 Units/1,000 Ml) 10 unit in 1,000 mls @ 12 mls/hr IV TITRATE DEVANTE; Protocol Last Admin: 10/28/19 11:55 Dose: 2 munits/min, 12 mls/hr Documented by: Oxytocin/Lactated Ringer's (Pitocin In Lr 10 Units/1,000 Ml) 10 unit in 1,000 mls @ 100 mls/hr IV .CONTINUOUS DEVANTE Nalbuphine HCl (Nubain) 10 mg IVPUSH Q2H PRN PRN Reason: Pain Sodium Chloride (Saline Flush) 10 ml FLUSH ASDIRECTED PRN PRN Reason: Keep Vein Open
--- NOTE | 2019-10-28 13:34 | PCM.LDHP ---
L&D History of Present Illness - General Date of Service: 10/28/19 Admit Problem/Dx: Patient Status Order with Admit Dx/Problem 10/28/19 11:12 Patient Status [ADT] Routine Admission Diagnosis/Problem Admission Diagnosis/Problem Meconium in amniotic fluid affecting management of mother Source of Information: Patient History Limitations: Reports: No Limitations - History of Present Illness Introduction:: Makayla Ledbetter is a 19-year-old -0-1-0 at 38 weeks 0 days (AMOR 11/11/2019) by an early ultrasound that was done in [place]. She reports that she had possible rupture membranes with a small amount of greenish colored fluid that came out of the vagina with a larger gush that came shortly afterwards. She had continuous leaking of the greenish colored fluid since around 830 this morning. She denies any regular contractions but reports that they are getting closer together since the leaking of fluid. She denies any vaginal bleeding with this. She reports good movement. She denies any fevers or chills. Timing/Duration: Reports: sudden onset (With gush of greenish colored fluid around 8:30 AM), constant/continuous Location, : Reports: Lower back, Pelvic Quality: Reports: Throbbing Severity: Moderate Improves with: Reports: None Worsens with: Reports: None Associated Symptoms: Reports: vaginal fluid, moderate amount. Denies: vaginal bleeding, vaginal discharge Present Illness Comments:: Makayla Ledbetter is a 19-year-old -0-1-0 at 38 weeks 0 days (AMOR 11/11/2019) by a early ultrasound that was done in [place]. She presented with spontaneous rupture membranes with meconium stained fluid. She has had routine care with myself starting at 14 weeks gestational age. She had several visits early in the in [place]. Her was complicated by pyelonephritis during this and she was admitted to the hospital for treatment from 07/10 to 07/13/2019. She was kept on suppression antibiotic therapy with Keflex 500 mg nightly after the diagnosis. Her has otherwise been uncomplicated. This is complicated by: * Pyelonephritis in at 22 weeks gestational age. 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 G1: 2014, spontaneous , underwent suction D&C for septic G2: Current labs Blood type: O+ Antibody screen: Negative First trimester hematocrit/hemoglobin: 41.3%/14.0 on 04/01/2019 Platelets: 214 on 04/01/2019 Urine culture: Mixed moose suggestive of contamination Rubella status: Non immune Hepatitis B surface antigen: Negative RPR: Negative HIV: Negative Gonorrhea: Negative Chlamydia: Negative Anatomy ultrasound: Overall normal anatomy, spine not well seen on multiple exams, 24th percentile on most recent exam, anterior placenta, no previa, normal fluid One hour glucose tolerance test: 139 Second trimester hematocrit/hemoglobin: 33.8%/11.5 on 08/16/2019 Platelets: 216 on 08/16/2019 3-hour glucose test: Fasting 90, 1 hour 178, 2-hour 124 and 3-hour 87 Third trimester hematocrit/hemoglobin: 37.3%/12.2 on 10/10/2019 Platelets: 247 on 10/10/2019 GBS status: Negative - Related Data Allergies/Adverse Reactions: Allergies Allergy/AdvReac Type Severity Reaction Status Date / Time oxycodone AdvReac Intermediate Nausea and Verified 10/28/19 11:11 Vomiting Home Medications: Home Meds No122/Iron/Folic Acid [ Multi Tablet] 1 each PO DAILY 04/15/19 [History] Cyclobenzaprine [Flexeril] 1 tab PO TID PRN 07/11/19 [History] Ranitidine HCl [Acid Pharmacy Technician Program Director] 150 mg PO DAILY 07/11/19 [History] Acetaminophen [Tylenol] 650 mg PO Q6H PRN tablet 07/13/19 [Rx] HYDROmorphone [Dilaudid] 2 mg PO Q4H PRN #8 tablet 07/13/19 [Rx] Ondansetron [Zofran Odt] 8 mg PO Q8H PRN #20 tab.rapdis 07/13/19 [Rx] cephALEXin [Keflex] 500 mg PO Q6H 10 Days #40 capsule 07/13/19 [Rx] Past Medical History - Past Health History Medical/Surgical History: Denies Medical/Surgical History HEENT History: Reports: None Cardiovascular History: Reports: None Respiratory History: Reports: None Gastrointestinal History: Reports: None (preg), GERD (during ) Genitourinary History: Reports: None, Pyelonephritis (during at 22 WGA), Other (See Below) Other Genitourinary History: history of kidney infection 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: Reports: : 2 Para: 0 Musculoskeletal History: Reports: None Neurological History: Reports: None Psychiatric History: Reports: Anxiety, Depression Endocrine/Metabolic History: Reports: None Insulin Pump Model and Care Transition Mgr: None Hematologic History: Reports: None Immunologic History: Reports: None Oncologic (Cancer) History: Reports: None Dermatologic History: Reports: None - Infectious Disease History Infectious Disease History: Reports: None - Past Surgical History Head Surgeries/Procedures: Reports: None HEENT Surgical History: Reports: None Female Surgical History: Reports: D&C (for septic ) Social & Family History - Family History Family Medical History: Noncontributory HEENT: Reports: None - Tobacco Use Smoking Status *Q: Never Smoker Second Hand Smoke Exposure: No - Tobacco Core Measures Tobacco Use/Smoking Within Last 30 Days: No Smokeless Tobacco Use in Last 30 Days: No - Caffeine Use Caffeine Use: Reports: None - Alcohol Use Days Per Week of Alcohol Use: 0 - Recreational Drug Use Recreational Drug Use: No - Living Situation & Occupation Living situation: Reports: Single, with Significant Other Occupation: Unemployed H&P Review of Systems - Review of Systems: Review Of Systems: See Below General: Denies: Fever, Chills, Malaise, Weakness, Fatigue HEENT: Denies: Headaches, Rhinitis, Post Nasal Drip, Sinus Congestion, Sore Throat, Visual Changes Pulmonary: Denies: Shortness of Breath, Wheezing, Pleuritic Chest Pain, Cough Cardiovascular: Denies: Chest Pain, Palpitations, Dyspnea on Exertion, Orthopnea Gastrointestinal: Reports: Constipation. Denies: Abdominal Pain, Diarrhea, Nausea, Vomiting Genitourinary: Denies: Dysuria, Frequency, Burning, Pain, Urgency Musculoskeletal: Denies: Back Pain (and hip pain) Skin: Denies: Rash, Lesions Psychiatric: Denies: Depression, Anxiety L&D Exam - Exam Exam: See Below - Vital Signs Vital Signs: Last Vital Signs Temp 36.7 C 10/28/19 09:30 Pulse 99 10/28/19 09:30 Resp 18 10/28/19 09:30 BP 129/82 10/28/19 09:30 Pulse Ox 99 10/28/19 09:30 Weight: 98.021 kg - OB Specific Contraction Duration (sec): 45-60 Contraction Frequency (min): 4-6 Contraction Intensity: Moderate Movement: Active Heart Tones: Present Heart Tones per Min: 125 (+15 x 15 accelerations, intermittent variable decelerations) Heart Rate (FHR) Variability: Moderate (6-25 bmp) Presentation: Vertex Estimated Weight: 7 to 7.5 pounds by Oziel - Elizalde Score Elizalde Score Cervix Position: Posterior Elizalde Score Consistency: Firm Elizalde Score Effacement: >80% (80%) Elizalde Score Dilation: 1-2 cm (1 cm) Elizalde Score 's Station: -3 Elizalde Score Total: 4 - Exam General: Alert, Oriented HEENT: Conjunctiva Clear, EOMI Neck: Supple, Trachea Midline Lungs: Clear to Auscultation, Normal Respiratory Effort Cardiovascular: Regular Rate, Regular Rhythm GI/Abdominal Exam: Soft, Non-Tender, No Distention, Other (Gravid). No: Guarding, Rigid, Rebound Genitourinary: Normal external exam, Other (Meconium fluid on the perineum) Extremities: Normal Inspection, Pedal Edema (1+) Skin: Warm, Dry, Intact Psychiatric: Alert, Normal Affect, Normal Mood - Patient Data Lab Results Last 24 hrs: Laboratory Results - last 24 hr 10/28/19 10/28/19 Range/Units 11:05 11:25 WBC 9.28 (3.98-10.04) K/mm3 RBC 4.30 (3.98-5.22) M/mm3 Hgb 12.4 (11.2-15.7) gm/dl Hct 37.3 (34.1-44.9) % MCV 86.7 (79.4-94.8) fl MCH 28.8 (25.6-32.2) pg MCHC 33.2 (32.2-35.5) g/dl RDW Std Deviation 43.8 (36.4-46.3) fL Plt Count 220 (182-369) K/mm3 MPV 11.2 (9.4-12.3) fl Neut % (Auto) 73.4 H (34.0-71.1) % Lymph % (Auto) 16.2 L (19.3-51.7) % Fleming % (Auto) 9.7 (4.7-12.5) % Eos % (Auto) 0.3 L (0.7-5.8) Baso % (Auto) 0.2 (0.1-1.2) % Neut # (Auto) 6.81 H (1.56-6.13) K/mm3 Lymph # (Auto) 1.50 (1.18-3.74) K/mm3 Fleming # (Auto) 0.90 H (0.24-0.36) K/mm3 Eos # (Auto) 0.03 L (0.04-0.36) K/mm3 Baso # (Auto) 0.02 (0.01-0.08) K/mm3 COVID-19 (ZEE) Negative (NEGATIVE) Result Diagrams: 10/28/19 11:25 - Problem List (1) 38 weeks gestation of SNOMED Code(s): 75613190 ICD Code: Z3A.38 - 38 WEEKS GESTATION OF Status: Acute Current Visit: Yes (2) Rubella non-immune status, antepartum SNOMED Code(s): 191081651 ICD Code: O99.89 - OTH DISEASES AND CONDITIONS COMPL PREG/CHLDBRTH; Z28.3 - UNDERIMMUNIZATION STATUS Status: Acute Current Visit: Yes (3) Pyelonephritis affecting in second trimester SNOMED Code(s): 02657060, 83995054, 247039074, 098195668 ICD Code: O23.02 - INFECTIONS OF KIDNEY IN , SECOND TRIMESTER Status: Acute Current Visit: No (4) Gastroesophageal reflux during , antepartum SNOMED Code(s): 925438315 ICD Code: O99.619 - DISEASES OF THE DGSTV SYS COMP , UNSP TRIMESTER; K21.9 - GASTRO-ESOPHAGEAL REFLUX DISEASE WITHOUT ESOPHAGITIS Status: Acute Current Visit: Yes Problem List Initiated/Reviewed/Updated: Yes Orders Last 24hrs: Active Orders 24 hr Category Date Time Status Patient Status [ADT] Routine ADT 10/28/19 11:12 Active Activity as Tolerated [RC] PFP Care 10/28/19 11:12 Active Communication Order [RC] ASDIRECTED Care 10/28/19 11:12 Active Notify Provider Vital Signs [RC] PRN Care 10/28/19 11:12 Active Notify Provider [RC] ASDIRECTED Care 10/28/19 12:36 Active Notify Provider [RC] PFP Care 10/28/19 11:12 Active Notify Provider [RC] PRN Care 10/28/19 11:12 Active Peripheral IV Care [RC] . DIRECTED Care 10/28/19 11:12 Active Pump Management, Intrathecal [RC] ASDIRECTED Care 10/28/19 11:12 Active Vital Signs [RC] PER UNIT ROUTINE Care 10/28/19 11:12 Active Regular Diet [DIET] Diet 10/28/19 Lunch Active RAPID PLASMA REAGIN,RPR [CHEM] Routine Lab 10/28/19 11:25 Received Bupivacaine/fentaNYL/NS [fentaNYL/Bupivacaine/NS 2 MCG- Med 10/28/19 12:36 Active 0.125% 100 ML] 100 ml EPIDUR ASDIRECTED PRN Lactated Ringers [Ringers, Lactated] 1,000 ml Med 10/28/19 11:12 Active IV ASDIRECTED Nalbuphine [Nubain] Med 10/28/19 11:12 Active 10 mg IVPUSH Q2H PRN Oxytocin/Lactated Ringers [Pitocin in LR 10 Units/1,000 Med 10/28/19 11:12 Active ML] 10 unit in 1,000 ml IV .CONTINUOUS Oxytocin/Lactated Ringers [Pitocin in LR 10 Units/1,000 Med 10/28/19 11:12 Active ML] 10 unit in 1,000 ml IV TITRATE Sodium Chloride 0.9% [Saline Flush] Med 10/28/19 11:12 Active 10 ml FLUSH ASDIRECTED PRN cephALEXin [Keflex] Med 10/28/19 21:00 Pending 500 mg PO BEDTIME diphenhydrAMINE [Benadryl] Med 10/28/19 12:36 Active 25 mg IVPUSH Q6H PRN ePHEDrine [ePHEDrine sulfate] Med 10/28/19 12:36 Active 5 mg IVPUSH ASDIRECTED PRN fentaNYL [Sublimaze] Med 10/28/19 12:36 Active 100 mcg EPIDUR Q3H PRN Electronic Heart Tones Ext w TOCO [WOMSER] Oth 10/28/19 11:12 Ordered Routine Electronic Heart Tones Internal [WOMSER] Per Unit Oth 10/28/19 11:12 Ordered Routine Peripheral IV Insertion Adult [OM.PC] Routine Oth 10/28/19 11:12 Ordered Resuscitation Status Routine Resus Stat 10/28/19 09:29 Ordered Medication Orders Cephalexin (Keflex) 500 mg PO BEDTIME DEVANTE Diphenhydramine HCl (Benadryl) 25 mg IVPUSH Q6H PRN PRN Reason: pruritis Ephedrine Sulfate (Ephedrine Sulfate) 5 mg IVPUSH ASDIRECTED PRN PRN Reason: Hypotension Fentanyl (Sublimaze) 100 mcg EPIDUR Q3H PRN PRN Reason: Pain Last Admin: 10/28/19 12:48 Dose: 100 mcg Documented by: FLOYD Fentanyl/Bupivacaine HCl (Fentanyl/Bupivacaine/Ns 2 Mcg-0.125% 100 Ml) 100 ml EPIDUR ASDIRECTED PRN PRN Reason: Pain Last Admin: 10/28/19 12:48 Dose: 100 ml Documented by: FLOYD Lactated Ringer's (Ringers, Lactated) 1,000 mls @ 100 mls/hr IV ASDIRECTED DEVANTE Last Admin: 10/28/19 12:49 Dose: 100 mls/hr Documented by: Infusion: 10/28/19 12:49 Dose: 100 mls/hr Documented by: Admin: 10/28/19 11:33 Dose: 100 mls/hr Documented by: FLOYD Oxytocin/Lactated Ringer's (Pitocin In Lr 10 Units/1,000 Ml) 10 unit in 1,000 mls @ 12 mls/hr IV TITRATE DEVANTE; Protocol Last Admin: 10/28/19 11:55 Dose: 2 munits/min, 12 mls/hr Documented by: FLOYD Oxytocin/Lactated Ringer's (Pitocin In Lr 10 Units/1,000 Ml) 10 unit in 1,000 mls @ 100 mls/hr IV .CONTINUOUS DEVANTE Nalbuphine HCl (Nubain) 10 mg IVPUSH Q2H PRN PRN Reason: Pain Sodium Chloride (Saline Flush) 10 ml FLUSH ASDIRECTED PRN PRN Reason: Keep Vein Open Assessment/Plan Comment:: Makayla Ledbetter is a 19-year-old -0-1-0 female at 38 weeks 0 days with spontaneous rupture membranes with meconium-stained fluid Refer to observation for spontaneous rupture of membranes Start Pitocin for augmentation of labor with irregular contractions that are 4 to 6 minutes [address] Continuous monitoring Place IV and have Lactated Ringer's at 125 ml/hr May have small amounts of regular diet Activity as tolerated May have epidural as desired Plans to breast-feed after delivery MMR vaccine after delivery due to rubella nonimmune status Continue on Keflex 500 mg nightly for UTI prophylaxis. We will continue this for 6 weeks . Inform plaster die maker of meconium-stained fluid for this patient Anticipate vaginal delivery unless otherwise indicated Mayco Flowers MD 1:43 PM 10/28/2019
--- NOTE | 2019-10-28 13:47 | PCM.PNLD ---
Labor Progress Note - VS & Meds Vital Signs: Last Vital Signs Temp 36.7 C 10/28/19 09:30 Pulse 99 10/28/19 09:30 Resp 18 10/28/19 09:30 BP 129/82 10/28/19 09:30 Pulse Ox 99 10/28/19 09:30 Active Medications: Current Medications Cephalexin (Keflex) 500 mg PO BEDTIME DEVANTE Diphenhydramine HCl (Benadryl) 25 mg IVPUSH Q6H PRN PRN Reason: pruritis Ephedrine Sulfate (Ephedrine Sulfate) 5 mg IVPUSH ASDIRECTED PRN PRN Reason: Hypotension Fentanyl (Sublimaze) 100 mcg EPIDUR Q3H PRN PRN Reason: Pain Last Admin: 10/28/19 12:48 Dose: 100 mcg Documented by: Fentanyl/Bupivacaine HCl (Fentanyl/Bupivacaine/Ns 2 Mcg-0.125% 100 Ml) 100 ml EPIDUR ASDIRECTED PRN PRN Reason: Pain Last Admin: 10/28/19 12:48 Dose: 100 ml Documented by: Lactated Ringer's (Ringers, Lactated) 1,000 mls @ 100 mls/hr IV ASDIRECTED DEVANTE Last Admin: 10/28/19 12:49 Dose: 100 mls/hr Documented by: Oxytocin/Lactated Ringer's (Pitocin In Lr 10 Units/1,000 Ml) 10 unit in 1,000 mls @ 12 mls/hr IV TITRATE DEVANTE; Protocol Last Titration: 10/28/19 13:44 Dose: 4 munits/min, 24 mls/hr Documented by: Oxytocin/Lactated Ringer's (Pitocin In Lr 10 Units/1,000 Ml) 10 unit in 1,000 mls @ 100 mls/hr IV .CONTINUOUS DEVANTE Nalbuphine HCl (Nubain) 10 mg IVPUSH Q2H PRN PRN Reason: Pain Sodium Chloride (Saline Flush) 10 ml FLUSH ASDIRECTED PRN PRN Reason: Keep Vein Open - Uterine Contractions Contraction Frequency (min): 2-5 Contraction Duration (sec): 45-60 Contraction Intensity: Moderate to Strong - Monitoring Monitor Mode: Doppler/Auscultation Heart Rate (FHR) Baseline: 125 Heart Rate (FHR) Variability: Moderate (6-25 bmp) Accelerations: Present, 15x15 Decelerations: None Strip Review: Category I - Vaginal Exam Dilation (cm): 1.5 Effacement (Percent): 90 Station: -3 Cervical Position: Midposition Sterile Vaginal Exam Performed By: Mayco Flowers - Labor Progress (Free Text) Labor Progress: Patient with minimal progress since initial presentation with dilation currently at 1.5/90/-3/soft/mid position. Continue Pitocin for augmentation of labor Patient to receive epidural for anesthesia shortly after this exam Routine vitals Continuous monitoring Anticipate vaginal delivery unless otherwise indicated Mayco Flowers MD 1:46 PM 10/28/2019
[2019-10-28] MEDS ORDERED: Measles, Mumps & Rubella Vaccine 0.5 ML SDV SUBCUT ONE (16:36)
--- NOTE | 2019-10-28 20:35 | PCM.DEL ---
L & D Note - General Info Date of Service: 10/28/19 Mother's Due Date: 11/11/19 - Delivery Note Labor: Spontaneous, Augmented by Oxytocin Delivery Outcome: Livebirth Infant Delivery Method: Spontaneous Vaginal Delivery-Single Presentation: Right Occiput Anterior (ARTURO) Nuchal Cord: None Prep: Povidone-Iodine (Betadine Anesthesia Type: Epidural Amniotic Fluid Description: Meconium Stained Episiotomy Type: None Laceration: 1st Degree (Bilateral perineal lacerations repaired with 4-0 Vicryl) Suture type: Vicryl Suture size: 4-0 Placenta: Intact, Spontaneous Cord: 3 Vessels Estimated Blood Loss: 300 Resuscitation Needed: No [place]: Bulb Syringe, Stimulated, Warmed, [place] Used Provider: Mayco Flowers Score 1 min: 8 Score 5 min: 9 Second Stage Interventions: Reports: Pushing Effectively, Pushing, Stirrups/Leg Supports Delivery Comments (Free Text/Narrative):: Stage I: Makayla Ledbetter was admitted for spontaneous rupture of membranes. On admission her cervix was dilated to 1 cm. She was GBS negative. She had meconium-stained fluid with the rupture of membranes that was moderately stained fluid. She was started on Pitocin for augmentation of labor due to irregular contraction pattern. She was given an epidural for anesthesia. She progressed to complete and pushing. Stage II: On 10/28/2019 she had a normal vaginal delivery of a live female at 19:53. Apgars of 8 & 9. Weight of 3370 g (7 Lbs 6.9 oz). Length of 19 inches. There was no nuchal cord. Infant was delivered in ARTURO position. The cord was doubly clamped and cut by father the infant. was placed on mother's abdomen. Stage III: She had a spontaneous delivery of an intact placenta in Elio presentation. Three vessel cord. She was given pitocin and fundal massage. She had bilateral perineal first-degree lacerations that were repaired with 4-0 Vicryl. She had periurethral abrasions that were hemostatic and not repaired. Mom and baby were stable to recovery. EBL of 300 mL. Mayco Flowers MD 8:31 PM 10/28/2019 - General Info Date of Service: 10/28/19 - Patient Data Vitals - Most Recent: Last Vital Signs Temp 36.7 C 10/28/19 09:30 Pulse 99 10/28/19 09:30 Resp 18 10/28/19 09:30 BP 129/82 10/28/19 09:30 Pulse Ox 99 10/28/19 09:30 Weight - Most Recent: 98.021 kg I&O - Last 24 Hours: Intake & Output 10/28/19 10/28/19 10/28/19 06:59 14:59 22:59 Intake Total 1999 Balance 1999 Lab Results Last 24 Hours: Laboratory Results - last 24 hr 10/28/19 10/28/19 Range/Units 11:05 11:25 WBC 9.28 (3.98-10.04) K/mm3 RBC 4.30 (3.98-5.22) M/mm3 Hgb 12.4 (11.2-15.7) gm/dl Hct 37.3 (34.1-44.9) % MCV 86.7 (79.4-94.8) fl MCH 28.8 (25.6-32.2) pg MCHC 33.2 (32.2-35.5) g/dl RDW Std Deviation 43.8 (36.4-46.3) fL Plt Count 220 (182-369) K/mm3 MPV 11.2 (9.4-12.3) fl Neut % (Auto) 73.4 H (34.0-71.1) % Lymph % (Auto) 16.2 L (19.3-51.7) % Wake % (Auto) 9.7 (4.7-12.5) % Eos % (Auto) 0.3 L (0.7-5.8) Baso % (Auto) 0.2 (0.1-1.2) % Neut # (Auto) 6.81 H (1.56-6.13) K/mm3 Lymph # (Auto) 1.50 (1.18-3.74) K/mm3 Wake # (Auto) 0.90 H (0.24-0.36) K/mm3 Eos # (Auto) 0.03 L (0.04-0.36) K/mm3 Baso # (Auto) 0.02 (0.01-0.08) K/mm3 COVID-19 (ZEE) Negative (NEGATIVE) Med Orders - Current: Current Medications Cephalexin (Keflex) 500 mg PO BEDTIME DEVANTE Diphenhydramine HCl (Benadryl) 25 mg IVPUSH Q6H PRN PRN Reason: pruritis Ephedrine Sulfate (Ephedrine Sulfate) 5 mg IVPUSH ASDIRECTED PRN PRN Reason: Hypotension Fentanyl (Sublimaze) 100 mcg EPIDUR Q3H PRN PRN Reason: Pain Last Admin: 10/28/19 12:48 Dose: 100 mcg Documented by: Fentanyl/Bupivacaine HCl (Fentanyl/Bupivacaine/Ns 2 Mcg-0.125% 100 Ml) 100 ml EPIDUR ASDIRECTED PRN PRN Reason: Pain Last Admin: 10/28/19 19:08 Dose: 100 ml Documented by: Lactated Ringer's (Ringers, Lactated) 1,000 mls @ 100 mls/hr IV ASDIRECTED DEVANTE Last Admin: 10/28/19 14:04 Dose: 100 mls/hr Documented by: Oxytocin/Lactated Ringer's (Pitocin In Lr 10 Units/1,000 Ml) 10 unit in 1,000 mls @ 12 mls/hr IV TITRATE DEVANTE; Protocol Last Titration: 10/28/19 16:26 Dose: 12 munits/min, 72 mls/hr Documented by: Oxytocin/Lactated Ringer's (Pitocin In Lr 10 Units/1,000 Ml) 10 unit in 1,000 mls @ 100 mls/hr IV .CONTINUOUS DEVANTE Nalbuphine HCl (Nubain) 10 mg IVPUSH Q2H PRN PRN Reason: Pain Sodium Chloride (Saline Flush) 10 ml FLUSH ASDIRECTED PRN PRN Reason: Keep Vein Open Discontinued Medications Measles/Mumps/Rubella Vaccine Live (M-M-R Ii Vaccine) 0.5 ml SUBCUT .ONCE ONE Stop: 10/28/19 16:37 - Problem List & Annotations (1) 38 weeks gestation of SNOMED Code(s): 80095169 Code(s): Z3A.38 - 38 WEEKS GESTATION OF Status: Acute Current Visit: Yes (2) Rubella non-immune status, antepartum SNOMED Code(s): 705596475 Code(s): O99.89 - OTH DISEASES AND CONDITIONS COMPL PREG/CHLDBRTH; Z28.3 - UNDERIMMUNIZATION STATUS Status: Acute Current Visit: Yes (3) Pyelonephritis affecting in second trimester SNOMED Code(s): 19483954, 69318942, 414532544, 198132020 Code(s): O23.02 - INFECTIONS OF KIDNEY IN , SECOND TRIMESTER Statu s: Acute Current Visit: No (4) Gastroesophageal reflux during , antepartum SNOMED Code(s): 148716747 Code(s): O99.619 - DISEASES OF THE DGSTV SYS COMP , UNSP TRIMESTER; K21.9 - GASTRO-ESOPHAGEAL REFLUX DISEASE WITHOUT ESOPHAGITIS Status: Acute Current Visit: Yes (5) Meconium in amniotic fluid affecting management of mother SNOMED Code(s): 61511263 Code(s): O36.8990 - MATERNAL CARE FOR OTH PROBLEMS, UNSP TRIMESTER, UNSP Status: Acute Current Visit: Yes (6) Vaginal delivery SNOMED Code(s): 412486468 Code(s): O80 - ENCOUNTER FOR FULL-TERM UNCOMPLICATED DELIVERY Status: Acute Current Visit: Yes (7) First degree perineal laceration during delivery SNOMED Code(s): 193331330 Code(s): O70.0 - FIRST DEGREE PERINEAL LACERATION DURING DELIVERY Status: Acute Current Visit: Yes - Problem List Review Problem List Initiated/Reviewed/Updated: Yes - My Orders Last 24 Hours: My Active Orders 10/28/19 09:29 Resuscitation Status Routine 10/28/19 Lunch Regular Diet [DIET] 10/28/19 11:12 Lactated Ringers [Ringers, Lactated] 1,000 ml IV ASDIRECTED Nalbuphine [Nubain] 10 mg IVPUSH Q2H PRN Oxytocin/Lactated Ringers [Pitocin in LR 10 Units/1,000 ML] 10 unit in 1,000 ml IV .CONTINUOUS Oxytocin/Lactated Ringers [Pitocin in LR 10 Units/1,000 ML] 10 unit in 1,000 ml IV TITRATE Sodium Chloride 0.9% [Saline Flush] 10 ml FLUSH ASDIRECTED PRN 10/28/19 11:12 Patient Status [ADT] Routine Activity as Tolerated [RC] PFP Communication Order [RC] ASDIRECTED Notify Provider Vital Signs [RC] PRN Notify Provider [RC] PFP Notify Provider [RC] PRN Peripheral IV Care [RC] . DIRECTED Vital Signs [RC] PER UNIT ROUTINE Electronic Heart Tones Ext w TOCO [WOMSER] Routine Electronic Heart Tones Internal [WOMSER] Per Unit Routine Peripheral IV Insertion Adult [OM.PC] Routine 10/28/19 11:25 RAPID PLASMA REAGIN,RPR [CHEM] Routine 10/28/19 16:36 Vaccines to be Administered [RC] PER UNIT ROUTINE 10/28/19 21:00 cephALEXin [Keflex] 500 mg PO BEDTIME - Plan Plan:: Makayla Ledbetter is a 19-year-old -0-1-1 female status post normal spontaneous vaginal delivery Admit to inpatient following normal spontaneous vaginal delivery Continue Pitocin per unit protocol following delivery of placenta and lactated Ringer's until tolerating regular diet Regular diet Vitals per unit routine Ibuprofen and Tylenol for pain control Assist with breast-feeding as needed Continue to monitor lochia MMR vaccine for rubella nonimmune status of the mother Anticipate discharge home on day #2 Mayco Flowers MD 8:31 PM 10/28/2019
[2019-10-28] MEDS ORDERED: Witch Hazel Medicated Pads 40/Jar TOP PRN (21:35)
[2019-10-28] MEDS ORDERED: Hydrocortisone Acetate 25 MG Supp RECTAL PRN (21:35)
[2019-10-28] MEDS ORDERED: Magnesium Hydroxide 400 MG/5 ML Susp 30 ML Cup PO PRN (21:35)
[2019-10-28] MEDS ORDERED: Acetaminophen 325 MG Tab PO PRN (21:35)
[2019-10-28] MEDS ORDERED: Benzocaine/Menthol 20%-0.5% Spray 56 GM Canister TOP PRN (21:35)
[2019-10-28] MEDS ORDERED: Docusate Sodium 100 MG Cap PO PRN (21:35)
[2019-10-28] MEDS: Cephalexin 500 MG Cap PO SCH (21:39)
[2019-10-29] MEDS ORDERED: Bupivacaine 0.25% 10 ML SDV ONE
[2019-10-29] MEDS ORDERED: ePHEDrine Sulfate/0.9% NaCl/Pf 25 MG/5 ML SYRINGE IV ONE
[2019-10-29] MEDS: Ibuprofen 600 MG Tab PO PRN ×2 (06:54→13:38)
--- NOTE | 2019-10-29 07:37 | PCM.SN.2 ---
- Free Text/Narrative Note: Post Progress Note PPD #1 Subjective: Doing well overall. Ambulating without difficulty. Lochia minimal. Voiding without difficulty. Tolerating regular diet without nausea or vomiting. Pain controlled with oral medications. Breast-feeding with minimal difficulty. Objective: Vitals: Vital Signs - 24 hr 10/28/19 10/28/19 10/29/19 09:30 21:53 03:09 Temperature 36.7 C Temperature [ 36.7 C Temporal] Pulse, 100 85 Peripheral Pulse, 99 Peripheral [ Pulse Oximetry] Respiratory 18 16 16 Rate Blood Pressure 117/70 113/57 L Blood Pressure 129/82 [Upper Arm] O2 Sat by Pulse 99 97 97 Oximetry Physical Exam General: Alert and oriented, no acute distress Lungs: Clear to auscultation bilaterally Heart: Regular rate and rhythm Abdomen: Soft, minimal appropriate tenderness, non-distended, fundus midline, nontender, and at the umbilicus Extremities: 1+ edema in bilateral lower extremities to mid shins ASSESSMENT: 19-year-old female -0-1-1 s/p normal vaginal delivery PPD #1, complicated by pyelonephritis at 22 weeks gestational age and rubella nonimmune status PLAN: Doing well Breast-feeding with minimal difficulty. Assist as needed Lochia minimal. Continue to monitor for appropriate lochia. Continue routine care Continue Keflex 500 mg nightly for UTI prophylaxis MMR vaccine prior to discharge due to rubella nonimmune status Anticipate discharge home tomorrow Mayco Flowers MD 7:36 AM 10/29/2019
--- NOTE | 2019-10-29 07:55 | PCM48HPAN ---
Post Anesthesia Note - EVALUATION WITHIN 48HRS OF ANESTHETIC Vital Signs in Normal Range: Yes Patient Participated in Evaluation: Yes Respiratory Function Stable: Yes Airway Patent: Yes Cardiovascular Function Stable: Yes Hydration Status Stable: Yes Pain Control Satisfactory: Yes Nausea and Vomiting Control Satisfactory: Yes Mental Status Recovered: Yes Vital Signs: Last Vital Signs Temp 36.7 C 10/28/19 21:53 Pulse 85 10/29/19 03:09 Resp 16 10/29/19 03:09 BP 113/57 L 10/29/19 03:09 Pulse Ox 97 10/29/19 03:09
[2019-10-29] MEDS ORDERED: Prenatal Multivitamin with Calcium/Folic Acid/Iron Tab PO SCH (09:00)
[2019-10-29] MEDS: Cephalexin 500 MG Cap PO SCH (21:00)
--- NOTE | 2019-10-29 21:19 | PCM.SN.2 ---
- Free Text/Narrative Note: Post Progress Note PPD #1 Subjective: Doing well overall. Tearful and emotional with news about 's transfer to [place] for additional monitoring and evaluation. Ambulating without difficulty. Lochia minimal. Voiding without difficulty. Reports that she did have a bowel movement this afternoon and did not have any difficulties with this. Tolerating regular diet without nausea or vomiting. Pain controlled with oral medications. Breast-feeding with minimal difficulty but reports some difficulty with keeping infant awake for feeding. Objective: Vitals: Vital Signs - 24 hr 10/28/19 10/29/19 10/29/19 21:53 03:09 08:45 Temperature 36.7 C 36.4 C Pulse, 100 85 80 Peripheral Respiratory 16 16 14 Rate Blood Pressure 117/70 113/57 L 118/83 O2 Sat by Pulse 97 97 97 Oximetry Physical Exam General: Alert and oriented, no acute distress Lungs: Clear to auscultation bilaterally Heart: Regular rate and rhythm Abdomen: Soft, minimal appropriate tenderness, non-distended, fundus midline, nontender, and 1 fingerbreadth below the umbilicus Extremities: Trace edema in bilateral lower extremities to mid shins ASSESSMENT: 19-year-old female -0-1-1 s/p normal vaginal delivery PPD #1, complicated by pyelonephritis at 22 weeks gestational age and rubella nonimmune status PLAN: Doing well Breast-feeding with minimal difficulty. Assist as needed Lochia minimal. Continue to monitor for appropriate lochia. Continue routine care Continue Keflex 500 mg nightly for UTI prophylaxis MMR vaccine given in the evening of PPD #1 due to rubella nonimmune status Discharge this evening due to infant transfer to higher level of care in [place] Mayco Flowers MD 9:18 PM 10/29/2019
--- NOTE | 2019-10-29 21:24 | PCM.DCSUM1 ---
Discharge Summary - Hospital Course Free Text/Narrative:: - General Info Date of Service: 10/28/19 Mother's Due Date: 11/11/19 - Delivery Note Labor: Spontaneous, Augmented by Oxytocin Delivery Outcome: Livebirth Infant Delivery Method: Spontaneous Vaginal Delivery-Single Presentation: Right Occiput Anterior (ARTURO) Nuchal Cord: None Prep: Povidone-Iodine (Betadine Anesthesia Type: Epidural Amniotic Fluid Description: Meconium Stained Episiotomy Type: None Laceration: 1st Degree (Bilateral perineal lacerations repaired with 4-0 Vicryl) Suture type: Vicryl Suture size: 4-0 Placenta: Intact, Spontaneous Cord: 3 Vessels Estimated Blood Loss: 300 Resuscitation Needed: No [place]: Bulb Syringe, Stimulated, Warmed, [place] Used Provider: Mayco Flowers Score 1 min: 8 Score 5 min: 9 Second Stage Interventions: Reports: Pushing Effectively, Pushing, Stirrups/Leg Supports Delivery Comments (Free Text/Narrative):: Stage I: Makayla Ledbetter was admitted for spontaneous rupture of membranes. On admission her cervix was dilated to 1 cm. She was GBS negative. She had meconium-stained fluid with the rupture of membranes that was moderately stained fluid. She was started on Pitocin for augmentation of labor due to irregular contraction pattern. She was given an epidural for anesthesia. She progressed to complete and pushing. Stage II: On 10/28/2019 she had a normal vaginal delivery of a live female at 19:53. Apgars of 8 & 9. Weight of 3370 g (7 Lbs 6.9 oz). Length of 19 inches. There was no nuchal cord. Infant was delivered in ARTURO position. The cord was doubly clamped and cut by father the infant. Infant was placed on mother's abdomen. Stage III: She had a spontaneous delivery of an intact placenta in Elio presentation. Three vessel cord. She was given pitocin and fundal massage. She had bilateral perineal first-degree lacerations that were repaired with 4-0 Vicryl. She had periurethral abrasions that were hemostatic and not repaired. Mom and baby were stable to recovery. EBL of 300 mL. HPI Initial Comments: - General Info Date of Service: 10/28/19 Mother's Due Date: 11/11/19 - Delivery Note Labor: Spontaneous, Augmented by Oxytocin Delivery Outcome: Livebirth Infant Delivery Method: Spontaneous Vaginal Delivery-Single Presentation: Right Occiput Anterior (ARTURO) Nuchal Cord: None Prep: Povidone-Iodine (Betadine Anesthesia Type: Epidural Amniotic Fluid Description: Meconium Stained Episiotomy Type: None Laceration: 1st Degree (Bilateral perineal lacerations repaired with 4-0 Vicryl) Suture type: Vicryl Suture size: 4-0 Placenta: Intact, Spontaneous Cord: 3 Vessels Estimated Blood Loss: 300 Resuscitation Needed: No [place]: Bulb Syringe, Stimulated, Warmed, [place] Used Provider: Mayco Flowers Score 1 min: 8 Score 5 min: 9 Second Stage Interventions: Reports: Pushing Effectively, Pushing, Stirrups/Leg Supports Delivery Comments (Free Text/Narrative):: Stage I: Makayla Ledbetter was admitted for spontaneous rupture of membranes. On admission her cervix was dilated to 1 cm. She was GBS negative. She had meconium-stained fluid with the rupture of membranes that was moderately stained fluid. She was started on Pitocin for augmentation of labor due to irregular contraction pattern. She was given an epidural for anesthesia. She progressed to complete and pushing. Stage II: On 10/28/2019 she had a normal vaginal delivery of a live female infant at 19:53. Apgars of 8 & 9. Weight of 3370 g (7 Lbs 6.9 oz). Length of 19 inches. There was no nuchal cord. Infant was delivered in ARTURO position. The cord was doubly clamped and cut by father the infant. Infant was placed on mother's abdomen. Stage III: She had a spontaneous delivery of an intact placenta in Elio presentation. Three vessel cord. She was given pitocin and fundal massage. She had bilateral perineal first-degree lacerations that were repaired with 4-0 Vicryl. She had periurethral abrasions that were hemostatic and not repaired. Mom and baby were stable to recovery. EBL of 300 mL. Brief History: - General Info. Date of Service: 10/28/19. Mother's Due Date: 11/11/19. - Delivery Note. Labor: Spontaneous, Augmented by Oxytocin. Buzz rush Outcome: Livebirth. Infant Delivery Method: Spontaneous Vaginal Delivery- Single. Presentation: Right Occiput Anterior (ARTURO). Nuchal Cord: None. Prep: Povidone-Iodine (Betadine. Anesthesia Type: Epidural. Amniotic Fluid Description: Meconium Stained. Episiotomy Type: None. Laceration: 1st Degree (Bilateral perineal lacerations repaired with 4-0 Vicryl). Suture type: Vicryl. Suture size: 4-0. Placenta: Intact, Spontaneous. Cord: 3 Vessels. Estimated Blood Loss: 300. Resuscitation Needed: No. : Bulb Syringe, Stimulated, Warmed, [place] Used. Provider: Mayco Flowers. Score 1 min: 8. Score 5 min: 9. Second Stage Interventions: Reports: Pushing Effectively, Pushing, Stirrups/Leg Supports. Delivery Comments (Free Text/Narrative):: Stage I: Makayla Ledbetter was admitted for spontaneous rupture of membranes. On admission her cervix was dilated to 1 cm. She was GBS negative. She had meconium-stained fluid with the rupture of membranes that was moderately stained fluid. She was started on Pitocin for augmentation of labor due to irregular contraction pattern. She was given an epidural for anesthesia. She progressed to complete and pushing. Stage II: On 10/28/2019 she had a normal vaginal delivery of a live female infant at 19:53. Apgars of 8 & 9. Weight of 3370 g (7 Lbs 6.9 oz). Length of 19 inches. There was no nuchal cord. Infant was delivered in ARTURO position. The cord was doubly clamped and cut by father the . Infant was placed on mother's abdomen. Stage III: She had a spontaneous delivery of an intact placenta in Elio presentation. Three vessel cord. She was given pitocin and fundal massage. She had bilateral perineal first-degree lacerations that were repaired with 4-0 Vicryl. She had periurethral abrasions that were hemostatic and not repaired. Mom and baby were stable to recovery. EBL of 300 mL. Diagnosis: Stroke: No - Discharge Data Discharge Date: 10/29/19 Discharge Disposition: Home, Self-Care 01 Condition: Good - Referral to Home Health Primary Care Physician: Mayco Flowers MD - Discharge Diagnosis/Problem(s) (1) 38 weeks gestation of SNOMED Code(s): 95170174 ICD Code: Z3A.38 - 38 WEEKS GESTATION OF Status: Acute Current Visit: Yes (2) Rubella non-immune status, antepartum SNOMED Code(s): 075932691 ICD Code: O99.89 - OTH DISEASES AND CONDITIONS COMPL PREG/CHLDBRTH; Z28.3 - UNDERIMMUNIZATION STATUS Status: Acute Current Visit: Yes (3) Pyelonephritis affecting in second trimester SNOMED Code(s): 98038085, 89975670, 037968099, 685768332 ICD Code: O23.02 - INFECTIONS OF KIDNEY IN , SECOND TRIMESTER Status: Acute Current Visit: No (4) Gastroesophageal reflux during , antepartum SNOMED Code(s): 253409228 ICD Code: O99.619 - DISEASES OF THE DGSTV SYS COMP , UNSP TRIMESTER; K21.9 - GASTRO-ESOPHAGEAL REFLUX DISEASE WITHOUT ESOPHAGITIS Status: Acute Current Visit: Yes (5) Meconium in amniotic fluid affecting management of mother SNOMED Code(s): 75135058 ICD Code: O36.8990 - MATERNAL CARE FOR OTH PROBLEMS, UNSP TRIMESTER, UNSP Status: Acute Current Visit: Yes (6) Vaginal delivery SNOMED Code(s): 711528759 ICD Code: O80 - ENCOUNTER FOR FULL-TERM UNCOMPLICATED DELIVERY Status: Acute Current Visit: Yes (7) First degree perineal laceration during delivery SNOMED Code(s): 563750349 ICD Code: O70.0 - FIRST DEGREE PERINEAL LACERATION DURING DELIVERY Status: Acute Current Visit: Yes - Patient Summary/Data Complications: None Consults: None Hospital Course: Makayla Ledbetter was admitted for spontaneous rupture membranes. On admission her cervix was dilated to 1 cm. She was GBS negative. She had meconium stained fluid with rupture membranes. She was given pitocin for augmentation of labor due to irregular contraction pattern. She was given an epidural for anesthesia. She progressed to complete and began pushing. On 10/28/2019 she had a normal vaginal delivery of a live female infant at 19:53. Apgars of 8 and 9. Weight of 3370 g (7 pounds 6.9 ounces). Her course was uneventful. Her pain was well controlled and she had minimal lochia. She was ambulating, tolerating a regular diet and voiding normally. She was breast-feeding with minimal difficulty but reported some difficulty with keeping infant awake while feeding. She was afebrile and her hematocrit was 37.3 on admission. She desired to be discharged in the evening of PPD #1 due to infant being transferr ed to higher level of care in [place]. Her blood type is O+. - Patient Instructions Diet: Regular Diet as Tolerated Activity: Apply Ice, As Tolerated Activity, Other: Nothing in the vagina for 6 weeks Driving: May Drive Today Showering/Bathing: May Shower Notify Provider of: Fever, Increased Pain, Swelling and Redness, Drainage, Nausea and/or Vomiting Other/Special Instructions: Please contact your physician's office if you have heavy vaginal bleeding enough to soak a pad in less than an hour for several hours. Monitor for any signs of an infection in the breasts with severe pain or redness of the breast. - Discharge Plan *PRESCRIPTION DRUG MONITORING PROGRAM REVIEWED*: Not Applicable *COPY OF PRESCRIPTION DRUG MONITORING REPORT IN PATIENT KATHY: Not Applicable Home Medications: Home Meds No122/Iron/Folic Acid [ Multi Tablet] 1 each PO DAILY 04/15/19 [History] Cyclobenzaprine [Flexeril] 1 tab PO TID PRN 07/11/19 [History] Acetaminophen [Tylenol] 650 mg PO Q6H PRN tablet 07/13/19 [Rx] cephALEXin [Keflex] 500 mg PO DAILY 10/28/19 [History] Benzocaine/Menthol [Dermoplast Pain Relief Weed] 1 spray TOP ASDIRECTED PRN canister 10/29/19 [Rx] Docusate Sodium [Colace] 100 mg PO BID PRN cap 10/29/19 [Rx] Hydrocortisone Acetate [Anucort-HC] 25 mg RECTAL BID PRN supp 10/29/19 [Rx] Ibuprofen [Motrin] 600 mg PO Q6H PRN tablet 10/29/19 [Rx] witch Lorrie [Tucks] 1 pad TOP ASDIRECTED PRN pad 10/29/19 [Rx] Patient Handouts: Care of a Perineal Tear, Care After Vaginal Delivery Referrals: Mayco Flowers MD [Primary Care Provider] - (Follow-up in 2 weeks for routine visit or earlier as needed. If is still admitted in the NICU you can delay this visit to 6 weeks after delivery.) - Discharge Summary/Plan Comment DC Time >30 min.: No - Patient Data Vitals - Most Recent: Last Vital Signs Temp 36.4 C 10/29/19 08:45 Pulse 80 10/29/19 08:45 Resp 14 10/29/19 08:45 BP 118/83 10/29/19 08:45 Pulse Ox 97 10/29/19 08:45 Weight - Most Recent: 98.021 kg I&O - Last 24 hours: Intake & Output 10/29/19 10/29/19 10/29/19 06:59 14:59 22:59 Intake Total 417 Balance 417 Lab Results - Last 24 hrs: Laboratory Results - last 24 hr 10/28/19 Range/Units 11:25 RPR Non-reactive (NONREACTIVE) Med Orders - Current: Current Medications Acetaminophen (Tylenol) 650 mg PO Q6H PRN PRN Reason: mild pain or fever Benzocaine/Menthol (Dermoplast Pain Relief Weed) 0 gm TOP ASDIRECTED PRN PRN Reason: Perineal Comfort Measure Last Admin: 10/28/19 21:46 Dose: 1 applic Documented by: Cephalexin (Keflex) 500 mg PO BEDTIME DEVANTE Last Admin: 10/29/19 21:00 Dose: 500 mg Documented by: Docusate Sodium (Colace) 100 mg PO BID PRN PRN Reason: Constipation Hydrocortisone Acetate (Anucort-Hc) 25 mg RECTAL BID PRN PRN Reason: Hemorrhoid pain Oxytocin/Lactated Ringer's (Pitocin In Lr 10 Units/1,000 Ml) 10 unit in 1,000 mls @ 100 mls/hr IV TITRATE DEVANTE; Protocol Ibuprofen (Motrin) 600 mg PO Q6H PRN PRN Reason: Mild pain or fever Last Admin: 10/29/19 13:38 Dose: 600 mg Documented by: Magnesium Hydroxide (Milk Of Magnesia) 30 ml PO BEDTIME PRN PRN Reason: Constipation Prenat Multivit/Abrasive [place]/Iron/Folic Ac ( Plus Iron) 1 each PO DAILY REPLACED BY [facility] Jacqueline Maza (Tucks) 1 pad TOP ASDIRECTED PRN PRN Reason: Perineal Comfort Measure Last Admin: 10/28/19 21:46 Dose: 1 applic Documented by: Discontinued Medications Bupivacaine HCl (Sensorcaine-Mpf 0.25%) 10 ml .ROUTE .STK-MED ONE Stop: 10/29/19 00:01 Diphenhydramine HCl (Benadryl) 25 mg IVPUSH Q6H PRN PRN Reason: pruritis Ephedrine Sulfate (Ephedrine Sulfate) 5 mg IVPUSH ASDIRECTED PRN PRN Reason: Hypotension Ephedrine Sulfate (Ephedrine 25 Mg/5 Ml Syringe) 25 mg IV .STK-MED ONE Stop: 10/29/19 00:01 Fentanyl (Sublimaze) 100 mcg EPIDUR Q3H PRN PRN Reason: Pain Last Admin: 10/28/19 12:48 Dose: 100 mcg Documented by: Fentanyl/Bupivacaine HCl (Fentanyl/Bupivacaine/Ns 2 Mcg-0.125% 100 Ml) 100 ml EPIDUR ASDIRECTED PRN PRN Reason: Pain Last Admin: 10/28/19 19:08 Dose: 100 ml Documented by: Lactated Ringer's (Ringers, Lactated) 1,000 mls @ 100 mls/hr IV ASDIRECTED DEVANTE Last Admin: 10/28/19 14:04 Dose: 100 mls/hr Documented by: Oxytocin/Lactated Ringer's (Pitocin In Lr 10 Units/1,000 Ml) 10 unit in 1,000 mls @ 12 mls/hr IV TITRATE DEVANTE; Protocol Last Titration: 10/28/19 19:55 Dose: 83.33 munits/min, 500 mls/hr Documented by: Oxytocin/Lactated Ringer's (Pitocin In Lr 10 Units/1,000 Ml) 10 unit in 1,000 mls @ 100 mls/hr IV .CONTINUOUS DEVANTE Measles/Mumps/Rubella Vaccine Live (M-M-R Ii Vaccine) 0.5 ml SUBCUT .ONCE ONE Stop: 10/28/19 16:37 Last Admin: 10/29/19 20:56 Dose: 0.5 ml Documented by: Nalbuphine HCl (Nubain) 10 mg IVPUSH Q2H PRN PRN Reason: Pain Sodium Chloride (Saline Flush) 10 ml FLUSH ASDIRECTED PRN PRN Reason: Keep Vein Open
== END 2019-10-29 21:50 | disposition home or self-care (01) | DRG 807 ==
LOC: JD.OBCHECK 09:19 → JD.OB 09:19 → JD.OBCHECK 10:49 → JD.OB 19:53 → OBSVTOIN 19:53
PROVIDERS: ADMIT Obstetrics & Gynecology; ATTEND Obstetrics & Gynecology
PROC: 10E0XZZ Delivery of Products of Conception, External Approach (ICD-10-PCS; principal; 2019-10-28)
PROC: 0HQ9XZZ Repair Perineum Skin, External Approach (ICD-10-PCS; 2019-10-28)
PROC: 3E0R3BZ Introduction of Anesthetic Agent into Spinal Canal, Percutaneous Approach (ICD-10-PCS; 2019-10-28)
PROC: 3E0234Z Introduction of Serum, Toxoid and Vaccine into Muscle, Percutaneous Approach (ICD-10-PCS; 2019-10-29)
DX: O77.0 Labor and delivery complicated by meconium in amniotic fluid (principal); Z37.0 Single live birth; O99.613 Diseases of the digestive system complicating pregnancy, third trimester; Z3A.38 38 weeks gestation of pregnancy; K21.9 Gastro-esophageal reflux disease without esophagitis; O70.0 First degree perineal laceration during delivery; Z11.59 Encounter for screening for other viral diseases; Z79.899 Other long term (current) drug therapy; Z23 Encounter for immunization
CPT/HCPCS: 01967; 36415; 51702; 59025; 59409; 85025; 86592; 90471; 90707; A9270-GY; J0171; J2590; J3010; J3490; J7120; U0002